=== PATIENT | female | born 1980 | race Two or more races ===

== ENCOUNTER 2017-05-20 12:10 | Inpatient (IN) | payer MEDICAID ==
[~2017-05-20] VITALS: Ht 149.9 cm; Wt 93.4 kg
[~2017-05-20 12:10] MED LIST: BUPR1TAB11; DIVA500T7; QUET400T3
[2017-05-20] MEDS ORDERED: SODIUM CHLORIDE 0.9% 500 ML IV ONE (12:26)
[2017-05-20] MEDS ORDERED: ONDANSETRON HCL 4 MG/2 ML VIAL IV ONE (12:30)
[2017-05-20 13:00] LABS: Basophils # (auto) 0 uL; Basophils % (auto) 0.4 % (0.0-2.0); CONDITION Y; Eosinophils # (auto) 0.1 uL; Eosinophils % (auto) 0.8 % (0.0-7.0); Hematocrit 38.1 % (36.0-46.0); Hemoglobin 12.8 g/dL (12.2-16.2); Lymphocytes # (auto) 1.7 uL; Mean Corpuscular Hgb Conc. 33.6 g/dL (32.0-36.0); Mean Corpuscular Volume 83.3 fL (80.0-100.0); Mean Platelet Volume 8.6 fL (7.4-10.4); Monocytes # (auto) 0.4 uL; Monocytes % (auto) 4.5 % (0.0-12.0); Neutrophils # (auto) 5.7 uL; Neutrophils % (auto) 72.3 % (37.0-80.0); Platelet Count (auto) 348 10^3/uL (140-450); Red Cell Distribution Width 14.6 % (11.6-16.0); White Blood Cell 7.8 10^3/uL (4.4-10.8)
[2017-05-20 13:15] LABS: INR 1.02 (0.9-1.15); Partial Thromboplastin Time 25.1 sec (22.64-33.71); Prothrombin Time 11.1 sec (9.37-12.3)
[2017-05-20 13:29] LABS: Albumin 3.6 g/dL (3.4-5.0); BUN/Creatinine Ratio 17.6; Bilirubin, Total 0.6 mg/dL (0.2-1.0); Calcium 8.4 mg/dL (8.5-10.1); Potassium 3.6 mmol/L (3.5-5.1); Total Protein 7.7 g/dL (6.4-8.2)
[2017-05-20] MEDS ORDERED: LORazepam 2MG/ML-1ML VIAL IV ONE (14:00)
[2017-05-20 15:10] LABS: Urine Bilirubin Negative (Negative); Urine Blood Negative /uL (Negative); Urine Color Yellow (Yellow); Urine Glucose Normal (Normal); Urine Ketone Negative (Negative); Urine Mucus FEW (None Seen); Urine Nitrite Negative (Negative); Urine RBC 1 /hpf (0 - 4); Urine Squamous Epithelial Cell FEW /hpf (<5); Urine Urobilinogen Normal (Negative); Urine pH 6.5 (5.0-8.0)
[2017-05-20] MEDS ORDERED: DIVA500T53 PO (16:20)
[2017-05-20] MEDS ORDERED: BUPR1TAB78 PO (16:21)
[2017-05-20] MEDS ORDERED: CLON05T PO (16:21)
[2017-05-20] MEDS ORDERED: QUET400T PO (16:21)
[2017-05-20] MEDS ORDERED: NITROGLYCERIN 0.4 MG SL TAB SL PRN (16:30)
[2017-05-20] MEDS ORDERED: MORPHINE SULF INJ 2 MG/ML SYRINGE 1ML IV PRN (16:30)
[2017-05-20] MEDS ORDERED: clonazePAM 0.5 MG TAB PO PRN (16:30)
[2017-05-20] MEDS ORDERED: HYDROcodone-ACET 5/325MG TAB PO PRN (16:30)
[2017-05-20] MEDS ORDERED: PANTOPRAZOLE SODIUM 40 MG/10 ML VIAL IV ONE (16:30)
[2017-05-20] MEDS: SODIUM CHLORIDE 0.9% 1,000 ML IV SCH (17:11)
[2017-05-20] MEDS: ONDANSETRON HCL 4 MG/2 ML VIAL IV PRN ×2 (17:25→23:40)
[2017-05-20] MEDS: buPROPion HCL 75 MG TAB PO SCH (19:30)
[2017-05-20] MEDS: metroNIDAZOLE 500MG/100ML 100 ML IV SCH (22:01)
[2017-05-20] MEDS: QUEtiapine FUMARATE 100 MG TAB PO SCH (22:36)
[2017-05-20 22:45] VITALS: BP 110/74
[2017-05-20 22:50] VITALS: BP 110/74
[2017-05-20] MEDS: MORPHINE SULF INJ 2 MG/ML SYRINGE 1ML IV PRN (23:40)
[2017-05-21] VITALS (7 sets, daily range): BP systolic 90–105; BP diastolic 59–67
[2017-05-21] MEDS: SODIUM CHLORIDE 0.9% 1,000 ML IV SCH ×2 (02:00→03:17)
[2017-05-21] MEDS: buPROPion HCL 75 MG TAB PO SCH ×2 (06:03→18:26)
[2017-05-21] MEDS: metroNIDAZOLE 500MG/100ML 100 ML IV SCH (06:05)
[2017-05-21 07:45] LABS: Basophils # (auto) 0 uL; Basophils % (auto) 0.3 % (0.0-2.0); CONDITION Y; Eosinophils # (auto) 0.1 uL; Eosinophils % (auto) 1.1 % (0.0-7.0); Hematocrit 35.8 % (36.0-46.0); Hemoglobin 12.1 g/dL (12.2-16.2); Lymphocytes # (auto) 2.9 uL; Lymphocytes % (auto) 35.2 % (10.0-50.0); Mean Corpuscular Hemoglobin 28.3 pg (28.0-32.0); Mean Corpuscular Hgb Conc. 33.7 g/dL (32.0-36.0); Mean Corpuscular Volume 84.2 fL (80.0-100.0); Mean Platelet Volume 8.3 fL (7.4-10.4); Monocytes # (auto) 0.5 uL; Monocytes % (auto) 5.9 % (0.0-12.0); Neutrophils # (auto) 4.7 uL; Neutrophils % (auto) 57.5 % (37.0-80.0); Platelet Count (auto) 294 10^3/uL (140-450); Red Cell Distribution Width 14.5 % (11.6-16.0); White Blood Cell 8.2 10^3/uL (4.4-10.8)
[2017-05-21 07:58] LABS: BUN/Creatinine Ratio 7.6; Calcium 7.9 mg/dL (8.5-10.1); Potassium 3.6 mmol/L (3.5-5.1)
[2017-05-21] MEDS ORDERED: cefTRIAXone 1GM/50ML D5W 50 ML IV SCH (09:00)
[2017-05-21] MEDS: PANTOPRAZOLE SODIUM 40 MG/10 ML VIAL IV SCH (09:45)
[2017-05-21] MEDS ORDERED: GOLYTELY 4L KIT PO ONE (12:15)
[2017-05-21] MEDS: ONDANSETRON HCL 4 MG/2 ML VIAL IV PRN (19:18)
[2017-05-21] MEDS: QUEtiapine FUMARATE 100 MG TAB PO SCH (22:25)
[2017-05-22 04:48] VITALS: BP 98/61
[2017-05-22] MEDS: SODIUM CHLORIDE 0.9% 1,000 ML IV SCH ×2 (05:31→11:22)
[2017-05-22 06:23] LABS: Hematocrit 35.4 % (36.0-46.0); Hemoglobin 11.9 g/dL (12.2-16.2)
[2017-05-22] MEDS: buPROPion HCL 75 MG TAB PO SCH (06:24)
[2017-05-22 08:00] VITALS: BP 105/67
[2017-05-22] MEDS ORDERED: diphenhdrAMINE HCL 50 MG/1 ML VL ONE (08:11)
[2017-05-22] MEDS ORDERED: SODIUM CHLORIDE LOCK 10 ML ONE (08:11)
[2017-05-22 09:00] VITALS: BP 100/35
[2017-05-22] MEDS: MIDAZOLAM HCL 5 MG/ML-1ML VIAL ONE ×2 (09:50→10:01)
[2017-05-22] MEDS: fentaNYL CITRATE 100 MCG/2 ML VL ONE ×2 (09:50→10:01)
[2017-05-22] MEDS ORDERED: HYDROCORTISONE ACET 25 MG RECTAL SUPP PR PRN (10:15)
[2017-05-22] MEDS: PANTOPRAZOLE SODIUM 40 MG/10 ML VIAL IV SCH (11:23)
[2017-05-22] MEDS: ONDANSETRON HCL 4 MG/2 ML VIAL IV PRN (11:23)
[2017-05-22] MEDS: MORPHINE SULF INJ 2 MG/ML SYRINGE 1ML IV PRN (11:24)
[2017-05-22] MEDS ORDERED: HYDR25SU21 PR (11:33)
[2017-05-22] MEDS ORDERED: PANT40TA2 PO (11:33)
[2017-05-22 12:45] VITALS: BP 95/72
[2017-05-22 13:00] VITALS: BP 95/72
[2017-05-22] MEDS ORDERED: MORPHINE SULFATE 4 MG/ML SYRG IV PRN (14:25)
[2017-05-22 22:00] VITALS: BP 115/72
== END 2017-05-22 14:15 | disposition home or self-care (01) | DRG 254 ==
LOC: EDBD 12:10 → ER 12:14 → TELE 12:15 → TELE-CENTR 22:10
PROVIDERS: ADMIT Internal Medicine; ATTEND Internal Medicine
PROC: 0DJD8ZZ Inspection of Lower Intestinal Tract, Via Natural or Artificial Opening Endoscopic (ICD-10-PCS; principal; 2017-05-20)
PROC: 0DJD8ZZ Inspection of Lower Intestinal Tract, Via Natural or Artificial Opening Endoscopic (ICD-10-PCS; 2017-05-20)
DX: K64.8 Other hemorrhoids (principal); K92.2 Gastrointestinal hemorrhage, unspecified; E86.0 Dehydration; F31.9 Bipolar disorder, unspecified; Z83.3 Family history of diabetes mellitus; F41.9 Anxiety disorder, unspecified; Z71.89 Other specified counseling
CPT/HCPCS: 36415; 45378; 71250; 74176; 80048; 80053; 81001; 81025; 83690; 85014; 85018; 85025; 85610; 85730; 93005; 94761; 96361; 96374; 96375; C9113; J0696; J2250; J2405; J3490

== ENCOUNTER 2017-05-24 23:26 | Emergency (ER) | payer MEDICAID ==
[~2017-05-24] VITALS: Ht 162.6 cm; Wt 72.6 kg
[~2017-05-24 23:26] MED LIST changes: +BUPR1TAB78 PO; +CLON05T PO; +DIVA500T53 PO; +HYDR25SU21 PR; +PANT40TA2 PO; +QUET400T PO
[2017-05-25] MEDS ORDERED: SODIUM CHLORIDE 0.9% 1,000 ML IVB ONE (00:32)
[2017-05-25] MEDS ORDERED: QUEtiapine FUMARATE 100 MG TAB PO ONE (00:45)
[2017-05-25] MEDS ORDERED: LORazepam 2MG/ML-1ML VIAL IV ONE (00:45)
[2017-05-25] MEDS ORDERED: ONDANSETRON HCL 4 MG/2 ML VIAL IV ONE (00:45)
[2017-05-25 01:17] LABS: Basophils # (auto) 0.3 uL; Basophils % (auto) 3.1 % (0.0-2.0); DEFINITIVE SEE PRINTOUT; Eosinophils # (auto) 0 uL; Eosinophils % (auto) 0.2 % (0.0-7.0); Hematocrit 38.3 % (36.0-46.0); Lymphocytes # (auto) 1.7 uL; Mean Corpuscular Hemoglobin 28.2 pg (28.0-32.0); Mean Corpuscular Hgb Conc. 33.8 g/dL (32.0-36.0); Mean Corpuscular Volume 83.3 fL (80.0-100.0); Mean Platelet Volume 8.3 fL (7.4-10.4); Monocytes # (auto) 0.3 uL; Monocytes % (auto) 3.4 % (0.0-12.0); Neutrophils # (auto) 7.4 uL; Neutrophils % (auto) 75.3 % (37.0-80.0); Platelet Count (auto) 267 10^3/uL (140-450); Red Cell Distribution Width 13.6 % (11.6-16.0); SUSPECT SEE PRINTOUT; White Blood Cell 9.7 10^3/uL (4.4-10.8)
[2017-05-25 01:29] LABS: INR 1.09 (0.9-1.15); Partial Thromboplastin Time 24.3 sec (22.64-33.71); Prothrombin Time 11.9 sec (9.37-12.3)
[2017-05-25 01:32] LABS: Urine Bilirubin Negative (Negative); Urine Blood Negative /uL (Negative); Urine Color Yellow (Yellow); Urine Glucose Normal (Normal); Urine Ketone TRACE (Negative); Urine Mucus FEW (None Seen); Urine Nitrite Negative (Negative); Urine RBC 2 /hpf (0 - 4); Urine Squamous Epithelial Cell FEW /hpf (<5); Urine Urobilinogen Normal (Negative); Urine pH 7.5 (5.0-8.0)
[2017-05-25 02:03] LABS: Albumin 3.4 g/dL (3.4-5.0); BUN/Creatinine Ratio 8.7; Calcium 8.1 mg/dL (8.5-10.1); Magnesium 2.1 mg/dL (1.6-2.6); Potassium 3.8 mmol/L (3.5-5.1)
[2017-05-25 02:06] LABS: Bilirubin, Total 0.4 mg/dL (0.2-1.0); Total Protein 7.5 g/dL (6.4-8.2)
[2017-05-25 03:40] VITALS: BP 93/57
[2017-05-25] MEDS ORDERED: cefTRIAXone 1GM/50ML D5W 50 ML IV ONE (04:45)
== END 2017-05-25 05:20 | disposition home or self-care (01) ==
LOC: ER 23:42
DX: K29.70 Gastritis, unspecified, without bleeding (principal); F41.9 Anxiety disorder, unspecified
CPT/HCPCS: 36415; 80053; 81001; 81025; 82150; 83690; 83735; 85025; 85610; 85730; 93005; 96361; 96365; 96375; 99285; J0696; J2060; J2405; J7030

== ENCOUNTER 2017-10-15 18:14 | Emergency (ER) | payer MEDICAID ==
[~2017-10-15] VITALS: Ht 167.6 cm; Wt 59.0 kg
[2017-10-15 19:12] LABS: Basophils # (auto) 0 uL; Basophils % (auto) 0.5 % (0.0-2.0); Eosinophils # (auto) 0.1 uL; Eosinophils % (auto) 1.3 % (0.0-7.0); Hematocrit 40.4 % (36.0-46.0); Hemoglobin 13.3 g/dL (12.2-16.2); Lymphocytes # (auto) 1.4 uL; Lymphocytes % (auto) 26.8 % (10.0-50.0); Mean Corpuscular Hemoglobin 27.5 pg (28.0-32.0); Mean Corpuscular Volume 83.3 fL (80.0-100.0); Mean Platelet Volume 8.4 fL (6.9-10.8); Monocytes # (auto) 0.3 uL; Monocytes % (auto) 5.4 % (0.0-12.0); Neutrophils # (auto) 3.4 uL; Platelet Count (auto) 251 10^3/uL (140-450); Red Cell Distribution Width 15.2 % (11.8-14.3); White Blood Cell 5.2 10^3/uL (4.4-10.8)
[2017-10-15 19:30] LABS: Albumin 3.7 g/dL (3.4-5.0); BUN/Creatinine Ratio 14.8; Bilirubin, Total 0.5 mg/dL (0.2-1.0); Total Protein 7.8 g/dL (6.4-8.2)
[2017-10-15] MEDS ORDERED: SODIUM CHLORIDE 0.9% 1,000 ML IV ONE ×2 (20:00→22:15)
[2017-10-15] MEDS ORDERED: ONDANSETRON HCL 4 MG/2 ML VIAL IV ONE ×2 (20:00→22:15)
[2017-10-15 20:10] LABS: Urine RBC None Seen /hpf (0 - 4)
[2017-10-15 20:21] LABS: Urine Bilirubin Negative (Negative); Urine Blood Negative /uL (Negative); Urine Color Colorless (Yellow); Urine Glucose Normal (Normal); Urine Ketone Negative (Negative); Urine Nitrite Negative (Negative); Urine Squamous Epithelial Cell FEW /hpf (<5); Urine Urobilinogen Normal (Negative); Urine pH 6.5 (5.0-8.0)
[2017-10-15] MEDS ORDERED: metroNIDAZOLE 500MG/100ML 100 ML IV ONE (21:45)
[2017-10-15] MEDS ORDERED: cefTRIAXone 1GM/50ML D5W 50 ML IV ONE ×2 (21:45→21:57)
[2017-10-15] MEDS ORDERED: ONDANSETRON HCL 4 MG/2 ML VIAL ONE (22:03)
[2017-10-15 23:10] VITALS: BP 113/80
== END 2017-10-15 23:16 | disposition home or self-care (01) ==
LOC: EDBD 18:14 → ER 18:17
DX: K52.9 Noninfective gastroenteritis and colitis, unspecified (principal); E86.0 Dehydration; R53.1 Weakness; Z79.899 Other long term (current) drug therapy; Z87.440 Personal history of urinary (tract) infections
CPT/HCPCS: 36415; 74176; 80053; 81001; 81025; 83690; 85025; 96361; 96365; 96366; 96368; 96375; 96376; 99285; J0696; J2405; J3490; J7030

== ENCOUNTER 2019-02-08 21:35 | Emergency (ER) | payer MEDICAID ==
[~2019-02-08] VITALS: Ht 147.3 cm; Wt 54.4 kg
[~2019-02-08 21:35] MED LIST changes: +DIVA1TAB59; -DIVA500T7
[2019-02-08] MEDS ORDERED: SODIUM CHLORIDE 0.9% 1,000 ML IVB ONE (23:06)
[2019-02-08] MEDS ORDERED: PANTOPRAZOLE 40 MG/10 ML VIAL IV STA (23:06)
[2019-02-08] MEDS ORDERED: HYDROmorphone HCL 2 MG/ML VL IV ONE (23:15)
[2019-02-08] MEDS ORDERED: ONDANSETRON HCL 4 MG/2 ML VIAL IV ONE (23:15)
[2019-02-08 23:35] LABS: Basophils # (auto) 0 uL; Eosinophils # (auto) 0.2 uL; Hemoglobin 12.7 g/dL (12.2-16.2); Lymphocytes # (auto) 2.4 uL; Monocytes # (auto) 0.4 uL
[2019-02-08 23:39] LABS: Basophils % (auto) 0.5 % (0.0-2.0); Eosinophils % (auto) 2.4 % (0.0-7.0); Hematocrit 38.3 % (36.0-46.0); Lymphocytes % (auto) 28.9 % (10.0-50.0); Mean Corpuscular Hemoglobin 26.9 pg (28.0-32.0); Mean Corpuscular Volume 81.6 fL (80.0-100.0); Monocytes % (auto) 5.2 % (0.0-12.0); Neutrophils # (auto) 5.3 uL; Nucleated Red Blood Cells % 0.2 %; Platelet Count (auto) 246 10^3/uL (140-450); Red Cell Distribution Width 14.5 % (11.8-14.3); White Blood Cell 8.3 10^3/uL (4.4-10.8)
[2019-02-08 23:52] LABS: INR 0.99 (0.9-1.15); Partial Thromboplastin Time 26.7 sec (23.78-33.04); Prothrombin Time 10.6 sec (9.27-12.13)
[2019-02-08 23:55] LABS: Albumin 3.7 g/dL (3.4-5.0); Calcium 8.5 mg/dL (8.5-10.1); Potassium 3.4 mmol/L (3.5-5.1)
[2019-02-08 23:57] LABS: BUN/Creatinine Ratio 18.1
[2019-02-09 00:03] LABS: Bilirubin, Total 0.4 mg/dL (0.2-1.0); Magnesium 2.1 mg/dL (1.6-2.6)
[2019-02-09 02:40] LABS: Urine Bacteria FEW /hpf (None Seen); Urine Blood Negative /uL (Negative); Urine WBC 7 /hpf (0 - 5)
[2019-02-09 03:30] VITALS: BP 120/79
[2019-02-09] MEDS ORDERED: cefTRIAXone 1GM/50ML D5W 50 ML IV ONE (03:45)
[2019-02-09] MEDS ORDERED: ALUM & MAG HYDROX-SIMETH LIQ(MAALOX) 30 ML PO ONE (04:15)
== END 2019-02-09 04:31 | disposition home or self-care (01) ==
LOC: ER 21:35 → EDBD 21:35 → ER 02-09 04:31
DX: N39.0 Urinary tract infection, site not specified (principal); Z79.899 Other long term (current) drug therapy
CPT/HCPCS: 36415; 74176; 76705; 80053; 81001; 81025; 82150; 83690; 83735; 85025; 85610; 85730; 94761; 96365; 96375; 99284; C9113; J0696; J1170; J2405

== ENCOUNTER 2019-12-30 10:31 | Emergency (ER) | payer MEDICAID ==
[~2019-12-30] VITALS: Ht 149.9 cm; Wt 59.0 kg
[~2019-12-30 10:31] MED LIST changes: -BUPR1TAB78 PO; +BUPR200T7 PO; +CLON0.5T3 PO; -CLON05T PO
[2019-12-30 11:04] LABS: Basophils # (auto) 0 uL; Basophils % (auto) 0.5 % (0.0-2.0); Eosinophils # (auto) 0.1 uL; Eosinophils % (auto) 1.5 % (0.0-7.0); Hematocrit 40.4 % (36.0-46.0); Hemoglobin 13.7 g/dL (12.2-16.2); Lymphocytes # (auto) 1.6 uL; Lymphocytes % (auto) 27.4 % (10.0-50.0); Mean Corpuscular Hemoglobin 28.3 pg (28.0-32.0); Mean Corpuscular Volume 83.3 fL (80.0-100.0); Monocytes # (auto) 0.3 uL; Monocytes % (auto) 5.4 % (0.0-12.0); Neutrophils # (auto) 3.8 uL; Neutrophils % (auto) 65.2 % (37.0-80.0); Nucleated Red Blood Cells % 0.1 %; Platelet Count (auto) 231 10^3/uL (140-450); Red Blood Cells 4.84 10^6/uL (4.0-5.20); Red Cell Distribution Width 15.5 % (11.8-14.3); White Blood Cell 5.8 10^3/uL (4.4-10.8)
[2019-12-30 11:24] LABS: Alanine Aminotransferase 18 U/L (13-56); Albumin 4.1 g/dL (3.4-5.0); Anion Gap 6 (5-15); Blood Alcohol < 3.0 mg/dL (0-5); Blood Urea Nitrogen 19 mg/dL (7-18); Calcium 8.9 mg/dL (8.5-10.1); Carbon Dioxide 24 mmol/L (21-32); Chloride 108 mmol/L (98-107); Glucose 95 mg/dL (74-106); Potassium 3.4 mmol/L (3.5-5.1); Sodium 138 mmol/L (136-145)
[2019-12-30 11:27] LABS: Alkaline Phosphatase 82 U/L (45-117); Aspartate Aminotransferase 14 U/L (15-37); BUN/Creatinine Ratio 23.2; Bilirubin, Total 0.8 mg/dL (0.2-1.0); GFR African American 101 mL/min; GFR Non-African American 83 mL/min; Total Protein 8.1 g/dL (6.4-8.2)
[2019-12-30] MEDS ORDERED: ACETAMINOPHEN 325 MG TAB PO ONE ×2 (14:30)
[2019-12-30 15:45] LABS: Amphetamine Screen, Urine NEGATIVE (NEGATIVE); Barbiturate Scree,Urine NEGATIVE (NEGATIVE); Benzodiazephine Screen, Urine NEGATIVE (NEGATIVE); Cannabinoid Screen, Urine NEGATIVE (NEGATIVE); Cocaine Screen, Urine NEGATIVE (NEGATIVE); Opiate Scree,Urine NEGATIVE (NEGATIVE); Phencyclidine Screen, Urine NEGATIVE (NEGATIVE)
[2019-12-30] MEDS ORDERED: QUEtiapine FUMARATE 100 MG TAB PO SCH (22:00)
[2019-12-30] MEDS: LORazepam 0.5 MG TAB PO SCH (22:28)
[2019-12-31] MEDS: LORazepam 0.5 MG TAB PO SCH (10:00)
[2019-12-31 10:27] VITALS: BP 101/63
== END 2019-12-31 10:43 | disposition psychiatric hospital, planned readmission (93) ==
LOC: EDBD 10:31 → ER 10:31
DX: F31.9 Bipolar disorder, unspecified (principal); F41.9 Anxiety disorder, unspecified; R45.851 Suicidal ideations
CPT/HCPCS: 36415; 80053; 80307; 80320; 81025; 85025

== ENCOUNTER 2020-03-12 18:33 | Emergency (ER) | payer MEDICAID ==
[~2020-03-12] VITALS: Ht 149.9 cm; Wt 59.0 kg
[2020-03-12 21:00] VITALS: BP 108/63
== END 2020-03-12 21:09 | disposition home or self-care (01) ==
LOC: ER 18:33
DX: B00.1 Herpesviral vesicular dermatitis (principal); Z98.51 Tubal ligation status

== ENCOUNTER 2020-10-06 21:51 | Emergency (ER) | payer MEDICAID ==
[~2020-10-06] VITALS: Ht 160 cm; Wt 55.8 kg
[2020-10-06 23:13] LABS: Basophils # (auto) 0.1 10 ^3/uL (0-0.2); Eosinophils # (auto) 0.2 10 ^3/uL (0-0.8); Eosinophils % (auto) 1.9 % (0.0-7.0); Hematocrit 42.6 % (36.0-46.0); Hemoglobin 13.9 g/dL (12.2-16.2); Lymphocytes # (auto) 2.2 10 ^3/uL (0.4-5.4); Lymphocytes % (auto) 19.9 % (10.0-50.0); Mean Corpuscular Hemoglobin 27.4 pg (28.0-32.0); Mean Corpuscular Hgb Conc. 32.7 g/dL (32.0-36.0); Monocytes # (auto) 0.4 10 ^3/uL (0-1.3); Monocytes % (auto) 3.6 % (0.0-12.0); Neutrophils % (auto) 73.6 % (37.0-80.0); Nucleated Red Blood Cells % 0.1 %; Platelet Count (auto) 281 10^3/uL (140-450); Red Blood Cells 5.07 10^6/uL (4.0-5.20); Red Cell Distribution Width 14.4 % (11.8-14.3); White Blood Cell 10.9 10^3/uL (4.4-10.8)
[2020-10-06 23:31] LABS: Urine Bacteria FEW /hpf (None Seen); Urine Blood Negative /uL (Negative); Urine Mucus FEW (None Seen); Urine Specific Gravity 1.015 (1.001-1.035); Urine WBC 1 /hpf (0 - 5)
[2020-10-06 23:35] LABS: Potassium 3.6 mmol/L (3.5-5.1)
[2020-10-06 23:39] LABS: BUN/Creatinine Ratio 20.8; Calcium 9.2 mg/dL (8.5-10.1)
[2020-10-06 23:42] LABS: Bilirubin, Total 0.5 mg/dL (0.2-1.0); Total Protein 8.5 g/dL (6.4-8.2)
[2020-10-06 23:46] LABS: Alcohol, Urine < 3.0 mg/dL (0-10); Amphetamine Screen, Urine NEGATIVE (NEGATIVE); Barbiturate Scree,Urine NEGATIVE (NEGATIVE); Benzodiazephine Screen, Urine NEGATIVE (NEGATIVE); Cannabinoid Screen, Urine NEGATIVE (NEGATIVE); Cocaine Screen, Urine NEGATIVE (NEGATIVE); Opiate Scree,Urine NEGATIVE (NEGATIVE); Phencyclidine Screen, Urine NEGATIVE (NEGATIVE)
[2020-10-07] MEDS ORDERED: ONDANSETRON HCL 4 MG/2 ML VIAL IV ONE (02:45)
[2020-10-07] MEDS ORDERED: MORPHINE SULFATE 4 MG/ML SYR/VIAL IV ONE (02:45)
[2020-10-07 04:32] VITALS: BP 116/79
== END 2020-10-07 03:35 | disposition home or self-care (01) ==
LOC: EDBD 21:51 → ER 21:58
DX: R10.84 Generalized abdominal pain (principal); R11.2 Nausea with vomiting, unspecified; R59.1 Generalized enlarged lymph nodes; Z87.440 Personal history of urinary (tract) infections; Z98.51 Tubal ligation status
CPT/HCPCS: 36415; 74176; 80053; 80307; 81001; 82150; 83690; 84702; 85025; 96374; 96375; 99284; J2270; J2405

== ENCOUNTER 2020-11-15 21:56 | Emergency (ER) | payer MEDICAID ==
[~2020-11-15] VITALS: Ht 149.9 cm; Wt 63.5 kg
[2020-11-15 22:46] LABS: Urine Bacteria NONE SEEN /hpf (None Seen); Urine Blood Negative /uL (Negative); Urine Specific Gravity 1.022 (1.001-1.035); Urine WBC 1 /hpf (0 - 5)
[2020-11-15 23:43] LABS: Basophils # (auto) 0 10 ^3/uL (0-0.2); Basophils % (auto) 0.4 % (0.0-2.0); Eosinophils # (auto) 0.1 10 ^3/uL (0-0.8); Eosinophils % (auto) 0.5 % (0.0-7.0); Hematocrit 41.4 % (36.0-46.0); Hemoglobin 13.8 g/dL (12.2-16.2); Lymphocytes # (auto) 1.7 10 ^3/uL (0.4-5.4); Lymphocytes % (auto) 14.6 % (10.0-50.0); Mean Corpuscular Hemoglobin 27.7 pg (28.0-32.0); Mean Corpuscular Hgb Conc. 33.4 g/dL (32.0-36.0); Monocytes # (auto) 0.4 10 ^3/uL (0-1.3); Monocytes % (auto) 3.3 % (0.0-12.0); Neutrophils # (auto) 9.4 10 ^3/uL (1.6-8.6); Neutrophils % (auto) 81.2 % (37.0-80.0); Nucleated Red Blood Cells % 0.1 %; Platelet Count (auto) 337 10^3/uL (140-450); Red Blood Cells 4.99 10^6/uL (4.0-5.20); Red Cell Distribution Width 14.4 % (11.8-14.3); White Blood Cell 11.6 10^3/uL (4.4-10.8)
[2020-11-16 00:06] LABS: Albumin 4.2 g/dL (3.4-5.0); BUN/Creatinine Ratio 18.3; Potassium 3.9 mmol/L (3.5-5.1)
[2020-11-16 00:15] LABS: Bilirubin, Total 0.3 mg/dL (0.2-1.0); Total Protein 8.5 g/dL (6.4-8.2)
[2020-11-16] MEDS ORDERED: PANTOPRAZOLE 40 MG TAB PO ONE (03:00)
[2020-11-16] MEDS ORDERED: DICYCLOMINE HCL 10 MG CAP PO ONE (03:00)
[2020-11-16] MEDS ORDERED: HYDROcodone-ACET 5/325MG TAB PO ONE (03:00)
[2020-11-16 03:23] LABS: INR 1.02 (0.9-1.15); Partial Thromboplastin Time 25.2 sec (23.0-31.2)
[2020-11-16 03:33] LABS: Amylase 87 U/L (25-115); Lipase 235 U/L (73-393)
[2020-11-16 03:35] VITALS: BP 122/93
== END 2020-11-16 03:39 | disposition home or self-care (01) ==
LOC: ER 21:59
DX: K25.4 Chronic or unspecified gastric ulcer with hemorrhage (principal); K58.9 Irritable bowel syndrome, unspecified; Z79.899 Other long term (current) drug therapy
CPT/HCPCS: 36415; 80053; 80320; 81001; 82150; 83605; 83690; 84484; 85025; 85610; 85730; 87040; 99284; J0500

== ENCOUNTER → 2020-11-28 | Outpatient (CLI) | payer MEDICAID | END | disposition home or self-care (01) | LOC: LAB 08:21 | PROVIDERS: ATTEND Nurse Practitioner Family | DX: U07.1 COVID-19 (principal) ==

== ENCOUNTER 2021-08-06 11:21 | Emergency (ER) | payer MEDICAID ==
[~2021-08-06] VITALS: Ht 147.3 cm; Wt 60.8 kg
[~2021-08-06 11:21] MED LIST changes: +DIVA500T2 PO; -DIVA500T53 PO; -QUET400T3; +QUET400T4
[2021-08-06 12:35] LABS: Basophils # (auto) 0 10 ^3/uL (0-0.2); Basophils % (auto) 0.2 % (0.0-2.0); Eosinophils # (auto) 0.1 10 ^3/uL (0-0.8); Eosinophils % (auto) 0.5 % (0.0-7.0); Hematocrit 39.7 % (36.0-46.0); Hemoglobin 13.4 g/dL (12.2-16.2); Lymphocytes # (auto) 0.6 10 ^3/uL (0.4-5.4); Lymphocytes % (auto) 5.9 % (10.0-50.0); Mean Corpuscular Hemoglobin 28.1 pg (28.0-32.0); Mean Corpuscular Hgb Conc. 33.7 g/dL (32.0-36.0); Mean Corpuscular Volume 83.3 fL (80.0-100.0); Monocytes # (auto) 0.4 10 ^3/uL (0-1.3); Monocytes % (auto) 3.5 % (0.0-12.0); Neutrophils # (auto) 9.5 10 ^3/uL (1.6-8.6); Neutrophils % (auto) 89.9 % (37.0-80.0); Red Blood Cells 4.77 10^6/uL (4.0-5.20); Red Cell Distribution Width 14.3 % (11.8-14.3); White Blood Cell 10.6 10^3/uL (4.4-10.8)
[2021-08-06 12:44] LABS: Albumin 3.8 g/dL (3.4-5.0); Calcium 8.8 mg/dL (8.5-10.1); Potassium 3.9 mmol/L (3.5-5.1)
[2021-08-06 12:54] LABS: BUN/Creatinine Ratio 11.1; Bilirubin, Total 0.7 mg/dL (0.2-1.0)
[2021-08-06] MEDS ORDERED: SODIUM CHLORIDE 0.9% 1,000 ML IVB ONE (13:15)
[2021-08-06] MEDS ORDERED: SODIUM CHLORIDE 0.9% 1,000 ML IV ONE (13:30)
[2021-08-06 13:31] LABS: Urine Bacteria NONE SEEN /hpf (None Seen); Urine Blood Negative /uL (Negative); Urine Mucus FEW (None Seen); Urine Specific Gravity 1.037 (1.001-1.035); Urine WBC 6 /hpf (0 - 5)
[2021-08-06 13:47] LABS: Magnesium 2.1 mg/dL (1.6-2.6)
[2021-08-06] MEDS ORDERED: ACETAMINOPHEN 325 MG TAB PO ONE (17:30)
[2021-08-06 18:15] VITALS: BP 100/64
== END 2021-08-06 18:37 | disposition home or self-care (01) ==
LOC: ER 11:21
DX: R53.1 Weakness (principal); N39.0 Urinary tract infection, site not specified; K59.00 Constipation, unspecified; F32.9 Major depressive disorder, single episode, unspecified; Z79.899 Other long term (current) drug therapy; Z20.822 Contact with and (suspected) exposure to COVID-19
CPT/HCPCS: 36415; 71045; 74176; 80053; 81001; 83690; 83735; 84443; 84702; 85025; 87426; 87804; 93005; 96360; 99285; C9803; J7030; U0003

== ENCOUNTER 2021-12-09 18:48 | Emergency (ER) | payer MEDICAID ==
[~2021-12-09] VITALS: Ht 165.1 cm; Wt 59.0 kg
[2021-12-09 19:00] VITALS: BP 132/86
[2021-12-09] MEDS ORDERED: ACETAMINOPHEN 325 MG TAB PO ONE (22:30)
== END 2021-12-09 22:37 | disposition home or self-care (01) ==
LOC: ER 18:48
DX: S13.4XXA Sprain of ligaments of cervical spine, initial encounter (principal); Z86.2 Personal history of diseases of the blood and blood-forming organs and certain disorders involving the immune mechanism; Z79.899 Other long term (current) drug therapy; V49.9XXA Car occupant (driver) (passenger) injured in unspecified traffic accident, initial encounter; Y93.89 Activity, other specified; Y92.89 Other specified places as the place of occurrence of the external cause; Y99.8 Other external cause status
CPT/HCPCS: 70450; 71250; 72125; 73030; 74176

== ENCOUNTER 2025-03-16 20:33 | Inpatient (IN) | payer MEDICAID ==
[~2025-03-16] VITALS: Ht 149.9 cm; Wt 57.2 kg
[~2025-03-16 20:33] MED LIST changes: +BUPR-133; +BUPR150T18 PO; -BUPR1TAB11; +DIVA-91 PO; +DIVA1TAB59 PO; -DIVA500T2 PO; +PANT-62 PO; +SEMA7TAB2 PO; +SUCR1TAB PO
[2025-03-16 21:30] LABS: Urine Bacteria None Seen /hpf (None Seen)
--- NOTE | 2025-03-16 21:34 | DVH ---
Exam: CT CT AB PEL WO CON-NO ORAL OR IV History: R sided abd pain, n/v/d s/p colonoscopy and EGD 03/08 Comparison Study: CT ABD PELVIS WO CONTRAST on DOS: 08/06/21 TECHNIQUE: Multidetector CT of the abdomen and pelvis was performed from lung bases to pubic symphysi s. Imaging was performed without IV contrast. Axial, coronal, and sagittal multiplanar reformats were obtained from the axial data set by the technologist. RADIATION DOSE: DLP 415.35 mGy.cm; CTDI vol 7.45 mGy. Findings: Limited evaluation given noncontrast technique. Lungs: The lung bases are clear. Heart: No cardiomegaly or pericardial effusion. Liver: Unremarkable. Small locule of air within the common bile duct. Gallbladder: Unremarkable. Spleen: Unremarkable Pancreas: Unremarkable Adrenals: Unremarkable Kidneys: Unremarkable GI tract: Unremarkable : Unremarkable. Vasculature: Unremarkable Lymphadenopathy: Absent Peritoneum: No ascites Musculoskeletal: Unremarkable Soft tissues: Unremarkable Impression: 1. Limited evaluation given noncontrast technique. 2. No definite acute abdominopelvic abnormalities. 3. Trace pneumobilia, favored iatrogenic.
[2025-03-16 21:41] LABS: Urine Amorphous Crystal FEW /hpf (None Seen); Urine Blood Negative /uL (Negative); Urine Clarity Clear (Clear); Urine Color Yellow (Yellow); Urine Protein, UAD Negative (Negative); Urine Specific Gravity 1.021 (1.001-1.035); Urine Squamous Epithelial Cell FEW /hpf (<5); Urine Urobilinogen Normal (Negative); Urine WBC 3 /HPF (0-5)
[2025-03-16 21:56] LABS: Basophils # (auto) 0 10 ^3/uL (0-0.2); Basophils % (auto) 0.4 % (0.0-2.0); Eosinophils # (auto) 0.1 10 ^3/uL (0-0.8); Eosinophils % (auto) 0.6 % (0.0-7.0); Hematocrit 41.1 % (36.0-46.0); Hemoglobin 13.5 g/dL (12.2-16.2); Lymphocytes % (auto) 17.8 % (10.0-50.0); Mean Corpuscular Hemoglobin 27.8 pg (28.0-32.0); Mean Corpuscular Volume 84.4 fL (80.0-100.0); Monocytes # (auto) 0.4 10 ^3/uL (0-1.3); Monocytes % (auto) 3.7 % (0.0-12.0); Neutrophils # (auto) 8.9 10 ^3/uL (1.6-8.6); Neutrophils % (auto) 77.5 % (37.0-80.0); Platelet Count (auto) 286 10^3/uL (140-450); Red Blood Cells 4.87 10^6/uL (4.0-5.20); Red Cell Distribution Width 14.6 % (11.8-14.3); White Blood Cell 11.5 10^3/uL (4.4-10.8)
[2025-03-16 22:04] LABS: Alkaline Phosphatase 83 U/L (46-116); Calcium 9.5 mg/dL (8.7-10.4); Carbon Dioxide 25 mmol/L (20-31); Chloride 105 mmol/L (98-107); Glucose 98 mg/dL (74-106); Potassium 4.1 mmol/L (3.5-5.1)
[2025-03-16 22:05] LABS: Albumin 4.5 g/dL (3.2-4.8); Anion Gap 8 (5-15); BUN/Creatinine Ratio 14.9 (10.0-20.0); Bilirubin, Total 0.3 mg/dL (0.2-1.0); Blood Urea Nitrogen 11 mg/dL (9-23); Sodium 138 mmol/L (136-145); Total Protein 7.4 g/dL (5.7-8.2)
[2025-03-16 22:06] LABS: Alanine Aminotransferase < 9 U/L (7-40); Aspartate Aminotransferase < 8 U/L (13-40); Lipase 58 U/L (12-53)
[2025-03-16] MEDS: SODIUM CHLORIDE 0.9% 2,000 ML IV ONE (23:47)
[2025-03-16] MEDS: MORPHINE SULFATE INJ 2 MG/ml SYRG IV ONE (23:57)
[2025-03-16] MEDS: PANTOPRAZOLE 40 MG/10 ML VIAL INJ IV ONE (23:58)
[2025-03-16] MEDS: ONDANSETRON HCL 4 MG/2 ML VIAL IV ONE (23:58)
--- NOTE | 2025-03-17 01:34 | ED.PDOC ---
GI ASSESSMENT HPI Comments 44-year-old female with a history of prediabetes, peptic ulcer disease, IBS and bipolar disorder brought in by family complaining of right-sided abdominal pain, nausea, vomiting and diarrhea since yesterday. Patient denies any blood in her stool or vomit, fever or urinary symptoms. Patient states she underwent EGD and colonoscopy with polypectomy on 03/08/[address] Chua. Chief Complaint: Abdominal Pain Time Seen by MD: 20:48 Primary Care Provider: Hollis Allergies: Coded Allergies: NO KNOWN ALLERGIES (Unverified , 12/14/11) Home Meds Active Scripts Pantoprazole Sodium Sesquihydr (Protonix) 40 Mg Tab, 40 MG PO DAILY, #30 TAB Prov:YNES WEBSTER MD 05/22/17 Hydrocortisone Acetate (Anusol-Hc) 25 Mg Sup, 1 SUPP UT BID PRN, #28 SUPP Prov:YNES WEBSTER MD 05/22/17 Reported Medications Clonazepam (KlonoPIN TABLET) 0.5 Mg Tb, 1 TAB PO DAILY, #30 TAB 05/20/17 Bupropion HCl (Bupropion HCl ER) 200 Mg Tab, 200 MG PO DAILY, TAB 05/20/17 Quetiapine Fumerate (Seroquel) 400 Mg Tab, 1 TAB PO QPM, #30 TAB 1 Refill 05/20/17 Divalproex Sodium (Depakote) 500 Mg Tab, 1 TAB PO DAILY, #60 TAB 1 Refill 05/20/17 [Divalproex Tue075 M2] (Divalproex Sodium Dr) 500 MG TAB No Conflict Check, MG 07/28/13 [Bupropion Nfx672 Mg] (Bupropion Hcl Er) 150 MG TAB No Conflict Check, MG 07/28/13 [Seroquel Xr400 Mg] (Seroquel Xr) 400 MG TAB No Conflict Check, MG 07/28/13 Mode of Arrival: Wheelchair Past Medical History PAST MEDICAL HISTORY: Anemia, Anxiety, Depression, PUD, UTI'S Past Medical History (Other): Bipolar disorder Surgical History: Tubal Ligation [employer] History: Ovarian Cysts Family History Family History: Family hx of DM Social History Smoker: Non-Smoker Alcohol: Denies ETOH Use Drugs: Denies Drug Use Lives In: Home All Other Systems: Reviewed and Negative (Comprehensive systems review obtained and negative except for what is stated in the HPI.) Physical Exam General Appearance: Mild Distress HEENT: Other (Pupils and face symmetric. Dry mucous membranes.) Neck: Full Range of Motion, Normal Inspection Respiratory: Lungs Clear, No Accessory Muscle Use, No Respiratory Distress, Normal Breath Sounds Cardiovascular: No Edema, No JVD, Regular Rate/Rhythm Breast Exam: Deferred Gastrointestinal: Epigastric, RLQ, RUQ, Soft, Tenderness Genitalia: Deferred Pelvic: Deferred Rectal: Deferred Extremities: Normal inspection, Normal range of motion, Non-tender, No pedal edema Neurologic: Alert (Oriented x4), Normal Affect, Normal Mood, Other (Moves all extremities. No gross focal deficit.) Cerebellar Function: NOT DONE Reflexes: NOT DONE Skin: Dry, Pallor, Warm Lymphatic: NOT DONE Was a procedure done? Was a procedure done?: No GI differential Dx Differential Diagnosis: Cholangitis, Cholecystitis, Diverticular disease, Gastroenteritis, GI hemorrhage, Hepatitis, Inflammatory BD, Ischemic Bowel, UTI, Dehydration, Diabetes/ DKA, Electrolyte Imbalance, Food Poisoning, Bacterial, Viral, Hypovolemia, Stress Ulcer X-Ray, Labs, Meds, VS Vital Signs Date Time Temp Pulse Resp B/P (MAP) Pulse Ox O2 Delivery O2 Flow Rate FiO2 03/16/25 23:57 89 19 107/79 03/16/25 23:48 98.7 89 19 106/73 (84) 98 98.7 03/16/25 20:40 97.5 114 18 104/67 (79) 96 97.5 Lab Test 03/16/25 22:22 03/16/25 21:30 03/16/25 20:49 03/16/25 20:40 Range/Units Troponin I High Sensitivity < 3 L < 3 L </=34 ng/L White Blood Count 11.5 H 4.4-10.8 10^3/uL Red Blood Count 4.87 4.0-5.20 10^6/uL Hemoglobin 13.5 12.2-16.2 g/dL Hematocrit 41.1 36.0-46.0 % Mean Corpuscular Volume 84.4 80.0-100.0 fL Mean Corpuscular Hemoglobin 27.8 L 28.0-32.0 pg Mean Corpuscular Hemoglobin Concent 33.0 32.0-36.0 g/dL Red Cell Distribution Width 14.6 H 11.8-14.3 % Platelet Count 286 140-450 10^3/uL Mean Platelet Volume 8.2 6.9-10.8 fL Neutrophils (%) (Auto) 77.5 37.0-80.0 % Lymphocytes (%) (Auto) 17.8 10.0-50.0 % Monocytes (%) (Auto) 3.7 0.0-12.0 % Eosinophils (%) (Auto) 0.6 0.0-7.0 % Basophils (%) (Auto) 0.4 0.0-2.0 % Neutrophils # (Auto) 8.9 H 1.6-8.6 10 ^3/uL Lymphocytes # (Auto) 2.0 0.4-5.4 10 ^3/uL Monocytes # (Auto) 0.4 0-1.3 10 ^3/uL Eosinophils # (Auto) 0.1 0-0.8 10 ^3/uL Basophils # (Auto) 0 0-0.2 10 ^3/uL Nucleated Red Blood Cells 0.0 % Sodium Level 138 136-145 mmol/L Potassium Level 4.1 3.5-5.1 mmol/L Chloride Level 105 98-107 mmol/L Carbon Dioxide Level 25 20-31 mmol/L Anion Gap 8 5-15 Blood Urea Nitrogen 11 9-23 mg/dL Creatinine 0.74 0.550-1.02 mg/dL Glomerular Filtration Rate Calc 104 >90 mL/min BUN/Creatinine Ratio 14.9 10.0-20.0 Serum Glucose 98 74-106 mg/dL Lactic Acid Level 1.8 0.4-2.0 mmol/L Calcium Level 9.5 8.7-10.4 mg/dL Total Bilirubin 0.3 0.2-1.0 mg/dL Aspartate Amino Transferase (AST) < 8 L 13-40 U/L Alanine Aminotransferase (ALT) < 9 7-40 U/L Alkaline Phosphatase 83 46-116 U/L B-Type Natriuretic Peptide 1.65 0-100 pg/mL Total Protein 7.4 5.7-8.2 g/dL Albumin 4.5 3.2-4.8 g/dL Lipase 58 H 12-53 U/L Beta HCG, Quantitative 0.9 L 1.5-4.2 mIU/mL POC Glucose 105 70-106 mg/dl Urine Color Yellow Yellow Urine Clarity Clear Clear Urine pH 6.0 5.0-9.0 Urine Specific [place] 1.021 1.001-1.035 Urine Protein Negative Negative Urine Ketones Trace Negative Urine Blood Negative Negative /uL Urine Nitrite Negative Negative Urine Bilirubin Negative Negative Urine Urobilinogen Normal Negative mg/dL Urine Leukocyte Esterase Negative Negative /uL Urine RBC <1 0 - 4 /hpf Urine Microscopic WBC 3 0-5 /HPF Urine Squamous Epithelial Cells Few <5 /hpf Urine Amorphous Crystals Few None Seen /hpf Urine Bacteria None seen None Seen /hpf Urine Glucose Normal Normal mg/dL Urine Opiates Screen Pending Urine Fentanyl Screen Pending Urine Barbiturates Screen Pending Urine Phencyclidine Screen Pending Urine Amphetamines Screen Pending Urine Benzodiazepines Screen Pending Urine Cocaine Screen Pending Urine Cannabinoids Screen Pending Current Medications Medications (Trade) Dose Ordered Sig/Mitali Route Start Time Stop Time Status Last Admin Morphine Sulfate 2 mg ONCE ONCE IV 03/16/25 21:00 03/16/25 21:01 DC 03/16/25 23:57 Ondansetron HCl (Zofran) 4 mg ONCE ONCE IV 03/16/25 21:00 03/16/25 21:01 DC 03/16/25 23:58 Pantoprazole Sodium (Protonix) 40 mg ONCE ONCE IV 03/16/25 21:00 03/16/25 21:01 DC 03/16/25 23:58 Sodium Chloride 2,000 ml @ 1,000 mls/hr Q2H ONCE IV 03/16/25 21:00 03/16/25 22:59 DC 03/16/25 23:47 PROCEDURE(s): ABPL - CT AB PEL WO CON-NO ORAL OR IV REASON: R sided abd pain, n/v/d s/p colonoscopy and EGD 03/08 ORDER NUMBER(s): [id number], ACCESSION NUMBER(s): [id number] Exam: CT CT AB PEL WO CON-NO ORAL OR IV History: R sided abd pain, n/v/d s/p colonoscopy and EGD 03/08 Comparison Study: CT ABD PELVIS WO CONTRAST on DOS: 08/06/21 TECHNIQUE: Multidetector CT of the abdomen and pelvis was performed from lung bases to pubic symphysis. Imaging was performed without IV contrast. Axial, coronal, and sagittal multiplanar reformats were obtained from the axial data set by the technologist. RADIATION DOSE: DLP 415.35 mGy.cm; CTDI vol 7.45 mGy. Findings: Limited evaluation given noncontrast technique. Lungs: The lung bases are clear. Heart: No cardiomegaly or pericardial effusion. Liver: Unremarkable. Small locule of air within the common bile duct. Gallbladder: Unremarkable. Spleen: Unremarkable Pancreas: Unremarkable Adrenals: Unremarkable Kidneys: Unremarkable GI tract: Unremarkable : Unremarkable. Vasculature: Unremarkable Lymphadenopathy: Absent Peritoneum: No ascites Musculoskeletal: Unremarkable Soft tissues: Unremarkable Impression: 1. Limited evaluation given noncontrast technique. 2. No definite acute abdominopelvic abnormalities. 3. Trace pneumobilia, favored iatrogenic. X-Ray, Labs, Meds, VS Comment 44-year-old female with a history of ulcer disease, bipolar disorder, prediabetes complaining of abdominal pain, nausea, vomiting and diarrhea. Patient states she underwent EGD and colonoscopy with polypectomy on 03/08/2025 Vitals remarkable for heart rate 114 Exam remarkable for dry mucous membranes, epigastric and right-sided abdominal pain Rhythm strip independently interpreted by me: Sinus tach, rate 114, no ectopy. CT abdomen and pelvis Impression: 1. Limited evaluation given noncontrast technique. 2. No definite acute abdominopelvic abnormalities. 3. Trace pneumobilia, favored iatrogenic. CBC remarkable for WBC 11.5, CMP unremarkable, lipase slightly elevated at 58, UA unremarkable, troponin negative Patient treated with the following in the ED: 2 L 0.9 normal saline IV bolus, morphine 2 mg IV, Zofran 4 mg IV, Protonix 40 mg IV On re-evaluation, patient stated pain had improved but not resolved. Vitals were stable. Plan is to admit the patient for lipase trend, GI re-evaluation, pain and emesis control. Time of 1ST Reevaluation: 02:09 Reevaluation 1ST: Improved Patient Education/Counseling: Diagnosis, Treatment Family Education/Counseling: No Family Present Departure 1 Departure Time of Disposition: 02:09 Impression: Primary Impression: Acute abdominal pain Additional Impressions: Elevated lipase Pneumobilia Disposition: ADMITTED INPATIENT Admit to: Med Surg Condition: Guarded Critical Care Note Critical Care Time?: No Stability Stability form required: No Heart Score Heart Score: Heart Score Response (Comments) Value History N/A 0 EKG N/A 0 Age N/A 0 Risk Factors N/A 0 Troponin N/A 0 Total 0 PILAR EATON MD Mar 17, 2025 01:34
--- NOTE | 2025-03-17 03:20 | DVHHPRES ---
History of Present Illness Resident Creating Document: ROSY MONTERROSO RESIDENT History of Present Illness Patient is a 44-year-old female with past medical history of prediabetes, irritable bowel syndrome, peptic ulcer disease, questionable bipolar disorder, depression, gallbladder sludge, who comes in due to abdominal pain. According to the patient, she started experiencing abdominal pain which started yesterday and progressively worsened overnight, associated with 2 episode of vomiting which she describes as coffee-ground dark in color and 2 episodes of watery bowel movement. Patient localizes the pain to the right upper quadrant with radiation to the right lower quadrant, describes it as sharp and burning in nature constant and 5/10 intensity right now. Patient notes she had a similar pain in August when she was diagnosed with peptic ulcer disease at [facility]. Of note, patient completed colonoscopy on 03/08/2025 and EGD in January 2024. Patient was noted to have a white cell count of 11.5, serum lipase 58 and tachycardic. On review of systems patient is complaining of fatigue, chills, nausea, vomiting, depression and anxiety. Last menstrual period was on 03/04/2025. CT abdomen pelvis showed trace pneumobilia otherwise unremarkable. Past Medical History prediabetes, irritable bowel syndrome, peptic ulcer disease, questionable bipolar disorder, depression Past Surgical History section, right knee surgery, right lumpectomy, ovarian cystectomy, tubal ligation Smoke: No ALCOHOL: none Drugs: None Lives: with Family Review of Systems Constitutional: Yes: Chills, Malaise; No: Fever, Sweats, Weakness, Other Eyes: No: Pain, Vision change, Conjunctivae inflammation, Eyelid inflammation, Other, Redness ENT: No: Ear pain, Ear discharge, Nose pain, Nose discharge, Nose congestion, Mouth pain, Mouth swelling, Throat pain, Throat swelling, Other Respiratory: No: Cough, Dry, Shortness of breath, SOB with excertion, Wheezing, Hemoptysis, Pleuritic Pain, Sputum, Wheezing, Other Cardiovascular: No: Chest Pain, Palpitations, Orthopnea, Paroxysmal Noc. Dys pnea, Edema, Lt Headedness, Other Gastrointestinal: Nausea, Vomiting, Abdominal Pain, Diarrhea; No: Constipation, Melena, Hematochezia, Other Genitourinary: No Dysuria, No Frequency, No Incontinence, No Hematuria, No Retention, No Other Musculoskeletal: No: other, neck pain, shoulder pain, arm pain, back pain, hand pain, leg pain, foot pain Skin: No: Rash, Lesions, Jaundice, Bruising, Other Neurological: No: Weakness, Numbness, Incoordination, Change in speech, C onfusion, Seizures, Other Allergies: Coded Allergies: Ciprofloxacin (Verified Allergy, Mild, rash, 03/17/25) Medications Current Medications Medications Dose Ordered Sig/Mitali Route Start Time Stop Time Status Last Admin Dose Admin Acetaminophen 325 mg Q4HP PRN PO 03/17/25 03:30 UNV Ondansetron HCl 4 mg Q4HP PRN IV 03/17/25 03:30 UNV Ciprofloxacin 200 ml @ 200 mls/hr Q12HR IV 03/17/25 03:30 UNV Metronidazole 100 ml @ 100 mls/hr Q8HR IV 03/17/25 03:30 UNV Exam Vital Signs Vital Signs Date Time Temp Pulse Resp B/P (MAP) Pulse Ox O2 Delivery O2 Flow Rate FiO2 03/16/25 23:57 89 19 107/79 03/16/25 23:48 98.7 98 98.7 General Appearance: Alert, Oriented X3, Cooperative, No acute distress HEENT: Atraumatic, PERRLA, EOMI, Other (Dry mucous membranes) Respiratory: Clear to auscultation, Normal air movement Cardiovascular: Normal S1, Normal S2, No murmurs, Other (Tachycardic) Abdominal: Normal bowel sounds, Soft, Other (Right upper quadrant tenderness to palpation with radiation of pain to the right lower quadrant) Extremities: No edema, Normal pulses Skin: No rashes, No breakdown, No significant lesion Neuro: Normal gait, Normal speech, Strength at 5/5 X4 ext, Sensation intact Psych/Mental Status: Mental status NL, Mood NL Labs/Xrays Labs Test 03/16/25 22:22 03/16/25 21:30 03/16/25 20:49 03/16/25 20:40 Range/Units Troponin I High Sensitivity < 3 L </=34 ng/L White Blood Count 11.5 H 4.4-10.8 10^3/uL Red Blood Count 4.87 4.0-5.20 10^6/uL Hemoglobin 13.5 12.2-16.2 g/dL Hematocrit 41.1 36.0-46.0 % Mean Corpuscular Volume 84.4 80.0-100.0 fL Mean Corpuscular Hemoglobin 27.8 L 28.0-32.0 pg Mean Corpuscular Hemoglobin Concent 33.0 32.0-36.0 g/dL Red Cell Distribution Width 14.6 H 11.8-14.3 % Platelet Count 286 140-450 10^3/uL Mean Platelet Volume 8.2 6.9-10.8 fL Neutrophils (%) (Auto) 77.5 37.0-80.0 % Lymphocytes (%) (Auto) 17.8 10.0-50.0 % Monocytes (%) (Auto) 3.7 0.0-12.0 % Eosinophils (%) (Auto) 0.6 0.0-7.0 % Basophils (%) (Auto) 0.4 0.0-2.0 % Neutrophils # (Auto) 8.9 H 1.6-8.6 10 ^3/uL Lymphocytes # (Auto) 2.0 0.4-5.4 10 ^3/uL Monocytes # (Auto) 0.4 0-1.3 10 ^3/uL Eosinophils # (Auto) 0.1 0-0.8 10 ^3/uL Basophils # (Auto) 0 0-0.2 10 ^3/uL Nucleated Red Blood Cells 0.0 % Sodium Level 138 136-145 mmol/L Potassium Level 4.1 3.5-5.1 mmol/L Chloride Level 105 98-107 mmol/L Carbon Dioxide Level 25 20-31 mmol/L Anion Gap 8 5-15 Blood Urea Nitrogen 11 9-23 mg/dL Creatinine 0.74 0.550-1.02 mg/dL Glomerular Filtration Rate Calc 104 >90 mL/min BUN/Creatinine Ratio 14.9 10.0-20.0 Serum Glucose 98 74-106 mg/dL Lactic Acid Level 1.8 0.4-2.0 mmol/L Calcium Level 9.5 8.7-10.4 mg/dL Total Bilirubin 0.3 0.2-1.0 mg/dL Aspartate Amino Transferase (AST) < 8 L 13-40 U/L Alanine Aminotransferase (ALT) < 9 7-40 U/L Alkaline Phosphatase 83 46-116 U/L B-Type Natriuretic Peptide 1.65 0-100 pg/mL Total Protein 7.4 5.7-8.2 g/dL Albumin 4.5 3.2-4.8 g/dL Lipase 58 H 12-53 U/L Beta HCG, Quantitative 0.9 L 1.5-4.2 mIU/mL POC Glucose 105 70-106 mg/dl Urine Color Yellow Yellow Urine Clarity Clear Clear Urine pH 6.0 5.0-9.0 Urine Specific [place] 1.021 1.001-1.035 Urine Protein Negative Negative Urine Ketones Trace Negative Urine Blood Negative Negative /uL Urine Nitrite Negative Negative Urine Bilirubin Negative Negative Urine Urobilinogen Normal Negative mg/dL Urine Leukocyte Esterase Negative Negative /uL Urine RBC <1 0 - 4 /hpf Urine Microscopic WBC 3 0-5 /HPF Urine Squamous Epithelial Cells Few <5 /hpf Urine Amorphous Crystals Few None Seen /hpf Urine Bacteria None seen None Seen /hpf Urine Glucose Normal Normal mg/dL Assessment/Plan Assessment/Plan Acute intractable abdominal pain due to possible cholecystitis vs gastritis vs ileitis/sigmoiditis Sepsis due to above Pneumobilia - completed colonoscopy with polypectomy which showed mild ileitis/sigmoiditis - CT abdomen pelvis: Limited evaluation given noncontrast technique. No definite acute abdominopelvic abnormalities. Trace pneumobilia, favored iatrogenic. - history of gallbladder sludge; ordered right upper quadrant ultrasound - serum lipase-58 - ordered lipid panel, serum triglycerides - IV metronidazole, IV ceftriaxone - IV NS 1.5 L bolus - IV ondansetron as needed History of depression Questionable bipolar disorder Irritable bowel syndrome - resumed home medication quetiapine, bupropion and divalproex Peptic ulcer disease - IV Protonix 40 mg daily Prediabetes - ordered Hb A1c - monitor DVT prophylaxis: SCDs Goals of care: Full code, discussed for >16 minutes on 03/17/2025 Plan discussed with patient Plan discussed with Dr. Lorenzana Plan discussed with: Patient, Other (RN) My Orders Orders - ROSY MONTERROSO RESIDENT Procedure Category Date Status Time Admit ADMIT 03/17/25 Transmitted 03:16 Allergies HYUN 03/17/25 Transmitted 03:16 Code Status CODE 03/17/25 Transmitted 03:16 Acetaminophen Tablet PHA 03/17/25 Transmitted (Tylenol Tablet) 03:30 Ondansetron Hcl PHA 03/17/25 Transmitted (Zofran) 03:30 Npo (Nothing By DIET 03/17/25 Verified Mouth) Diet Breakfast Condition: Unstable HYUN 03/17/25 Transmitted 03:16 Sequential HYUN 03/17/25 Transmitted Compression Device Notify Md Of Changes HYUN 03/17/25 Transmitted From Base 03:16 NS PHA 03/17/25 Transmitted 03:30 Ciprofloxacin PHA 03/17/25 Transmitted 400mg/200ml (Cipro Iv) 03:30 Metronidazole Ivpb PHA 03/17/25 Transmitted Flagyl 03:30 Drug Screen LAB 03/17/25 Transmitted 03:16 Covid19 Antigen Anni LAB 03/17/25 Transmitted Rapid Influenza A&B LAB 03/17/25 Transmitted 03:16 Date of Service: Mar 17, 2025 Billing Provider: SAVANNAH LORENZANA MD Common Visit Codes: 30335-POQUCUP INP/OBS CARE (HIGH) ROSY MONTERROSO RESIDENT Mar 17, 2025 03:20
[2025-03-17] MEDS ORDERED: ACETAMINOPHEN 325 MG TAB PO PRN (03:30)
[2025-03-17 04:14] LABS: Amphetamine Screen, Urine Neg (NEGATIVE)
[2025-03-17 04:16] LABS: Barbiturate Scree,Urine Neg (NEGATIVE); Benzodiazephine Screen, Urine Neg (NEGATIVE); Cannabinoid Screen, Urine Neg (NEGATIVE); Cocaine Screen, Urine Neg (NEGATIVE); Opiate Scree,Urine Neg (NEGATIVE); Phencyclidine Screen, Urine Neg (NEGATIVE)
[2025-03-17] MEDS: SODIUM CHLORIDE 0.9% 500 ML IV ONE (04:36)
[2025-03-17] MEDS: metroNIDAZOLE 500MG/100ML 100 ML IV SCH (04:39)
[2025-03-17] MEDS: PANTOPRAZOLE 40 MG/10 ML VIAL INJ IV ONE (04:39)
[2025-03-17] MEDS: CIPROFLOXACIN 400MG/200ML 200 ML IV SCH (05:19)
[2025-03-17 05:36] LABS: COVID19 ANTIGEN SOFIA FIA NEGATIVE (NEGATIVE); Rapid Influenza A Negative (Negative); Rapid Influenza B Negative (Negative)
[2025-03-17 05:41] LABS: Basophils # (auto) 0 10 ^3/uL (0-0.2); Basophils % (auto) 0.3 % (0.0-2.0); Eosinophils # (auto) 0.1 10 ^3/uL (0-0.8); Eosinophils % (auto) 0.7 % (0.0-7.0); Hematocrit 37.8 % (36.0-46.0); Hemoglobin 12.4 g/dL (12.2-16.2); Lymphocytes # (auto) 2.8 10 ^3/uL (0.4-5.4); Lymphocytes % (auto) 27.5 % (10.0-50.0); Mean Corpuscular Hemoglobin 27.4 pg (28.0-32.0); Mean Corpuscular Hgb Conc. 32.7 g/dL (32.0-36.0); Mean Corpuscular Volume 83.8 fL (80.0-100.0); Monocytes # (auto) 0.5 10 ^3/uL (0-1.3); Monocytes % (auto) 4.8 % (0.0-12.0); Neutrophils # (auto) 6.7 10 ^3/uL (1.6-8.6); Neutrophils % (auto) 66.7 % (37.0-80.0); Platelet Count (auto) 254 10^3/uL (140-450); Red Blood Cells 4.51 10^6/uL (4.0-5.20); Red Cell Distribution Width 14.5 % (11.8-14.3); White Blood Cell 10.1 10^3/uL (4.4-10.8)
[2025-03-17 05:46] LABS: Potassium 3.6 mmol/L (3.5-5.1); Sodium 140 mmol/L (136-145)
[2025-03-17 05:47] LABS: Anion Gap 8 (5-15); Carbon Dioxide 24 mmol/L (20-31)
[2025-03-17 05:52] LABS: BUN/Creatinine Ratio 13.4 (10.0-20.0); Blood Urea Nitrogen 9 mg/dL (9-23); Triglycerides 128 mg/dL (< 150)
[2025-03-17 05:53] LABS: Folate (Folic Acid) 17.91 ng/mL (>5.38)
[2025-03-17 05:54] LABS: Cholesterol 179 mg/dL (< 200); Glucose 91 mg/dL (74-106); HDL Cholesterol 54 mg/dL (40-59)
[2025-03-17 06:01] LABS: Calcium 8.5 mg/dL (8.7-10.4); Chloride 108 mmol/L (98-107); LDL Cholesterol 107 mg/dL (< 100)
[2025-03-17] MEDS: cefTRIAXone 1GM/50ML D5W 50 ML IV SCH (06:15)
[2025-03-17 07:00] VITALS: BP 114/79; PULSE 86; RESP 16; TEMP 97.5
[2025-03-17] MEDS: diphenhdrAMINE HCL 25 MG CAP PO ONE (07:03)
--- NOTE | 2025-03-17 07:32 | DVH ---
EXAM: US Abdomen Limited, Right Upper Quadrant CLINICAL INDICATION: RUQ pain, pneumobilia TECHNIQUE: Real-time ultrasound of the right upper quadrant with image documentation. COMPARISON: None FINDINGS: LIVER: Liver measures up to 16.3 cm. Fatty infiltration of the liver. No intrahepatic bile duct d ilation. GALLBLADDER: Negative Cardozo's sign was reported by the furniture painter. Gallbladder not visualized. COMMON BILE DUCT: Unremarkable as visualized. No stones. No dilation. PANCREAS: Unremarkable as visualized. RIGHT KIDNEY: Right kidney measures up to 10.1 cm. No stones. No hydronephrosis. OTHER FINDINGS: . . IMPRESSION: Fatty infiltration of the liver.
[2025-03-17 08:26] VITALS: BP 101/68; PULSE 81; RESP 16; TEMP 97.7; O2SAT 99
--- NOTE | 2025-03-17 09:11 | ECG ---
[facility] Test Date: 2025-03-17 Test Time: 03:42:08 Pat Name: PASTORA HASSAN Department: ED Room: [address] [place] [address] Gender: F Registered Representative: KRISTY : 1980 Requested By: PILAR DELCID Order Number: [id number] Reading MD: Melecio Aly Measurements Intervals [place] Rate: 74 P: 83 ND: 158 QRS: 71 QRSD: 95 T: 33 QT: 415 QTc: 461 Interpretive Statements Sinus rhythm Low voltage, precordial leads Borderline T abnormalities, anterior leads Electronically Signed On 03-17-2025 13:21:37 PDT by Melecio Aly Please click the below link to view image of tracing.
[2025-03-17] MEDS: PANTOPRAZOLE 40 MG/10 ML VIAL INJ IV SCH (09:23)
[2025-03-17] MEDS ORDERED: PANTOPRAZOLE 40 MG TAB PO SCH (10:00)
[2025-03-17] MEDS ORDERED: PANTOPRAZOLE 40 MG/10 ML VIAL INJ IV SCH (10:00)
[2025-03-17 13:25] VITALS: BP 102/71; PULSE 84; RESP 20; TEMP 98.3; O2SAT 99
--- NOTE | 2025-03-17 14:11 | DVHINCON2 ---
GI Consult Consult Note GI consult note Date of Consultation: 03/17/2025 Chief Complaint: Abdominal pain, history of PUD Referring Physician: Dr. Lopez H&P: 44-year-old female with past medical history of prediabetes, irritable bowel sounds, peptic ulcer, questionable bipolar disorder,, depression gallbladder sludge presents to ER with abdominal pain. Patient mostly complaining of right side abdominal burning sensation. Also complains of nausea and vomiting for two days, mostly food. No hematemesis. Patient also has loose stools for 2 times, yellow in color. No melena or red blood in stool Status post EDG 02/15/2025, 1 cm hiatal hernia, gastritis, polyps. Pathology showing chronic inactive gastritis mild with reactive gastropathy Status post colonoscopy 03/08/2025, mild terminal ileitis with multiple small aphthous like ulcers seen in the distal 5-10 cm of the terminal ileum from which biopsies were obtained, 2-3 mm benign appearing ascending colon polyp, minimal nonspecific sigmoiditis Pathology report of colonoscopy, hyperplastic polyp. Mild acute ileitis, colonic mucosa with chronic nonspecific inflammation and lymphoid aggregate Past Medical History: prediabetes, irritable bowel syndrome, peptic ulcer disease, questionable bipolar disorder, depression Past Surgical History: section, right knee surgery, right lumpectomy, ovarian cystectomy, tubal ligation Social History: NO smoking, drinking ETOH and use of illegal drugs. Family History: Noncontributory Review of Systems: Constitutional: no fever, chill, weight loss HEENT: no eye pain, no hearing loss, no oral lesion, no scleral icterus Heart: no chest pain, no chest pressure Lung: no cough, no dyspnea with exertion Abdomen: see HPI Physical exam: General: NAD, AAOX3 Chest: lung martinez clear to auscultation Heart: RRR, no murmur Abdomen: Right abdominal tenderness to palpation, +BS Labs: Labs Test 03/17/25 04:52 03/17/25 04:42 03/16/25 22:22 03/16/25 21:30 Range/Units White Blood Count 10.1 4.4-10.8 10^3/uL Red Blood Count 4.51 4.0-5.20 10^6/uL Hemoglobin 12.4 12.2-16.2 g/dL Hematocrit 37.8 36.0-46.0 % Mean Corpuscular Volume 83.8 80.0-100.0 fL Mean Corpuscular Hemoglobin 27.4 L 28.0-32.0 pg Mean Corpuscular Hemoglobin Concent 32.7 32.0-36.0 g/dL Red Cell Distribution Width 14.5 H 11.8-14.3 % Platelet Count 254 140-450 10^3/uL Mean Platelet Volume 8.1 6.9-10.8 fL Neutrophils (%) (Auto) 66.7 37.0-80.0 % Lymphocytes (%) (Auto) 27.5 10.0-50.0 % Monocytes (%) (Auto) 4.8 0.0-12.0 % Eosinophils (%) (Auto) 0.7 0.0-7.0 % Basophils (%) (Auto) 0.3 0.0-2.0 % Neutrophils # (Auto) 6.7 1.6-8.6 10 ^3/uL Lymphocytes # (Auto) 2.8 0.4-5.4 10 ^3/uL Monocytes # (Auto) 0.5 0-1.3 10 ^3/uL Eosinophils # (Auto) 0.1 0-0.8 10 ^3/uL Basophils # (Auto) 0 0-0.2 10 ^3/uL Nucleated Red Blood Cells 0.0 % Sodium Level 140 136-145 mmol/L Potassium Level 3.6 3.5-5.1 mmol/L Chloride Level 108 H 98-107 mmol/L Carbon Dioxide Level 24 20-31 mmol/L Anion Gap 8 5-15 Blood Urea Nitrogen 9 9-23 mg/dL Creatinine 0.67 0.550-1.02 mg/dL Glomerular Filtration Rate Calc 112 >90 mL/min BUN/Creatinine Ratio 13.4 10.0-20.0 Serum Glucose 91 74-106 mg/dL Hemoglobin A1c 5.9 H <5.7 % A1C Calcium Level 8.5 L 8.7-10.4 mg/dL Triglycerides Level 128 < 150 mg/dL Cholesterol Level 179 < 200 mg/dL LDL Cholesterol 107 H < 100 mg/dL HDL Cholesterol 54 40-59 mg/dL Vitamin B12 Level 712 211-911 pg/mL Vitamin D 25-Hydroxy 26.7 L 30.0-100 ng/mL Folic Acid 17.91 >5.38 ng/mL Thyroid Stimulating Hormone (TSH) 4.18 0.55-4.78 uIU/mL Influenza Type A Antigen Negative Negative Influenza Type B Antigen Negative Negative SARS-CoV-2 Antigen (Rapid) Negative NEGATIVE Troponin I High Sensitivity < 3 L </=34 ng/L Lactic Acid Level 1.8 0.4-2.0 mmol/L Total Bilirubin 0.3 0.2-1.0 mg/dL Aspartate Amino Transferase (AST) < 8 L 13-40 U/L Alanine Aminotransferase (ALT) < 9 7-40 U/L Alkaline Phosphatase 83 46-116 U/L B-Type Natriuretic Peptide 1.65 0-100 pg/mL Total Protein 7.4 5.7-8.2 g/dL Albumin 4.5 3.2-4.8 g/dL Lipase 58 H 12-53 U/L Beta HCG, Quantitative 0.9 L 1.5-4.2 mIU/mL Test 03/16/25 20:49 03/16/25 20:40 Range/Units POC Glucose 105 70-106 mg/dl Urine Color Yellow Yellow Urine Clarity Clear Clear Urine pH 6.0 5.0-9.0 Urine Specific Cope 1.021 1.001-1.035 Urine Protein Negative Negative Urine Ketones Trace Negative Urine Blood Negative Negative /uL Urine Nitrite Negative Negative Urine Bilirubin Negative Negative Urine Urobilinogen Normal Negative mg/dL Urine Leukocyte Esterase Negative Negative /uL Urine RBC <1 0 - 4 /hpf Urine Microscopic WBC 3 0-5 /HPF Urine Squamous Epithelial Cells Few <5 /hpf Urine Amorphous Crystals Few None Seen /hpf Urine Bacteria None seen None Seen /hpf Urine Glucose Normal Normal mg/dL Urine Opiates Screen Neg NEGATIVE Urine Fentanyl Screen Neg NEGATIVE Urine Barbiturates Screen Neg NEGATIVE Urine Phencyclidine Screen Neg NEGATIVE Urine Amphetamines Screen Neg NEGATIVE Urine Benzodiazepines Screen Neg NEGATIVE Urine Cocaine Screen Neg NEGATIVE Urine Cannabinoids Screen Neg NEGATIVE Imaging: CT abdomen pelvis Impression: 1. Limited evaluation given noncontrast technique. 2. No definite acute abdominopelvic abnormalities. 3. Trace pneumobilia, favored iatrogenic. Abdominal ultrasound IMPRESSION: Fatty infiltration of the liver. Assessment: Intractable Abdominal pain Gastritis Possible Mild Crohn's ileitis Plan: Discussed with Dr. Chua IBD panel Small-bowel series with Gastrografin Continue antibiotics DC NSAIDs discussed Clear liquid diet advance as tolerated Possible plan to start patient on Entocort if symptoms do not improve Plan discussed with patient, and by telephone Thank you for this consult Date of Service: Mar 17, 2025 Billing Provider: EDMUNDO PRATER Common Visit Codes: CONSULT ONLY Consultation Codes: [id number] CONSULT <60MIN EDMUNDO PRATER Mar 17, 2025 14:11
[2025-03-17] MEDS: GASTROGRAFIN 120 ML SOL ONE (14:31)
[2025-03-17] MEDS: ONDANSETRON HCL 4 MG/2 ML VIAL IV PRN (16:42)
[2025-03-17] MEDS ORDERED: MORPHINE SULFATE INJ 2 MG/ml SYRG IV PRN (17:00)
[2025-03-17 17:11] VITALS: BP 95/71; PULSE 88; RESP 20; TEMP 98; O2SAT 98
[2025-03-17] MEDS: SODIUM CHLORIDE 0.9% 1,000 ML IV ONE (17:30)
[2025-03-17] MEDS ORDERED: QUEtiapine FUMARATE 100 MG TAB PO SCH (18:00)
--- NOTE | 2025-03-17 19:07 | DVH ---
Procedure: XY SMALL BOWEL SERIES-W GASTROGRA Reason for study/Clinical History: abd pain, possible chron's Comparison Study: None available at time of dictation. Technique: Single contrast small bowel series performed. Findings: [employer] image demonstrates possible small bowel ileus in the left upper quadrant otherwise normal bowel -gas pattern After ingestion of the 120 mL of Gastrografin at 15 minutes the contrast column is in the proximal il eum. At 30 minutes contrast still in the proximal ileum At 45 minutes in the distal ileum. And at 1 hour its in the ascending colon. IMPRESSION: 1. No acute findings. Recommend a follow-up CT examination of the abdomen and pelvis with contrast fo r further assessment
--- NOTE | 2025-03-17 19:44 | DVHPNRES ---
Progress Note Date Seen: Mar 17, 2025 Resident Creating Document: DUNIA LUNA CASA Has the PT tested + for MRSA If YES, has PT been informed?: No Medical Necessity Reason Pt with a Central, PICC or Fol: No Subjective Review of Systems Patient is a 44-year-old female with past medical history of prediabetes, irritable bowel syndrome, peptic ulcer disease, questionable bipolar disorder, depression, gallbladder sludge, who comes in due to abdominal pain. According to the patient, she started experiencing abdominal pain which started yesterday and progressively worsened overnight, associated with 2 episode of vomiting which she describes as coffee-ground dark in color and 2 episodes of watery bowel movement. Patient localizes the pain to the right upper quadrant with radiation to the right lower quadrant, describes it as sharp and burning in nature constant and 5/10 intensity right now. Patient notes she had a similar pain in August when she was diagnosed with peptic ulcer disease at [facility]. Of note, patient completed colonoscopy on 03/08/2025 and EGD in January 2024. Patient was noted to have a white cell count of 11.5, serum lipase 58 and tachycardic. On review of systems patient is complaining of fatigue, chills, nausea, vomiting, depression and anxiety. Last menstrual period was on 03/04/2025. CT abdomen pelvis showed trace pneumobilia otherwise unremarkable. PMHx: prediabetes, irritable bowel syndrome, peptic ulcer disease, questionable bipolar disorder, depression PSHx: section, right knee surgery, right lumpectomy, ovarian cystectomy, tubal ligation Family history: Noncontributory Social history: Denies smoking or any other drug use. Lives with the family at home Home medication: Protonix, bupropion, divalproex, quetiapine Allergic history: Ciprofloxacin Patient seen and examined at the bedside. Patient is still complaining of abdominal pain. Objective vital signs Vital Sign Date Time Temp Pulse Resp B/P (MAP) Pulse Ox O2 Delivery O2 Flow Rate FiO2 03/17/25 17:11 98.0 88 20 95/71 (79) 98 98.0 03/17/25 13:28 Room Air* 0 21 Total Intake and Output 03/16/25 03/16/25 03/17/25 15:00 23:00 07:00 Intake Total 1600 ml Balance 1600 ml medications Current Medications Medications Dose Ordered Sig/Mitali Route Start Time Stop Time Status Last Admin Dose Admin Acetaminophen 325 mg Q4HP PRN PO 03/17/25 03:30 Ondansetron HCl 4 mg Q4HP PRN IV 03/17/25 03:30 03/17/25 16:42 4 MG Metronidazole 100 ml @ 100 mls/hr Q8HR IV 03/17/25 03:30 03/17/25 13:55 100 MLS/HR Patient Own Medication 200 mg DAILY PO 03/17/25 10:00 Hold Divalproex Sodium 500 mg DAILY PO 03/17/25 10:00 03/17/25 09:23 500 MG Ceftriaxone Sodium 50 ml @ 100 mls/hr DAILY@ IV 03/17/25 06:15 03/17/25 09:22 100 MLS/HR Ceftriaxone Sodium 50 ml @ 100 mls/hr DAILY@ IV 03/18/25 09:00 Cancel Pantoprazole Sodium 40 mg BID IV 03/17/25 10:00 03/17/25 09:23 40 MG Acetaminophen/ Hydrocodone Bitart 1 tab Q4HPRN PRN PO 03/17/25 09:00 Morphine Sulfate 1 mg Q4HP PRN IV 03/17/25 17:00 Quetiapine Fumarate 400 mg HS PO 03/17/25 22:00 laboratory and microbiology Laboratory Tests 03/17/25 04:52 Test 03/17/25 04:52 Range/Units Serum Glucose 91 74-106 mg/dL Labs and/or images reviewed: Labs reviewed by me, Image(s) reviewed by me Problem List/Assessment/Plan Problem List/Assessment/Plan Intractable abdominal pain, likely due to peptic ulcer disease/cholelithiasis/ cholangitis Sepsis, likely due to above History of irritable bowel syndrome History of peptic ulcer disease Fatty liver CT abdominopelvic shows, Trace pneumobilia, favored iatrogenic GI consulted, recommended small bowel series, finding shows No acute findings. Recommend a follow-up CT examination of the abdomen and pelvis with contrast for further assessment Protonix Empiric antibiotic, Rocephin and Flagyl Pain management History of depression, anxiety Continue home meds Prediabetes DIET: Clear liquids DVT PROPHYLAXIS: Lovenox GI PROPHYLAXIS:: Protonix CODE STATUS: Goal of care discussed for more than 18 minutes, full code DISPOSITION: Med/surge Patient's status and plan discussed with the patient. Case discussed with Dr. Haq. Plan discussed with: Patient (RN) My Orders My Orders Orders - DUNIA LUNA Procedure Category Date Status Time * Gi [facility] CONS 03/17/25 Transmitted 08:45 Hydrocodone-Acet PHA 03/17/25 In Process 5/325mg Tab ([place] 09:00 Sodium Chloride 0.9% PHA 03/17/25 In Process 17:00 Morphine Sulfate PHA 03/17/25 In Process Injection 17:00 DUNIA LUNA RESARACELY Mar 17, 2025 19:44
[2025-03-17 20:00] VITALS: PULSE 89; RESP 19
[2025-03-17 21:00] VITALS: BP_SYST 116; BP_SYST 99; BP_DIAS 62; BP_DIAS 69; PULSE 60; PULSE 89; RESP 18; RESP 19; TEMP 97.6; TEMP 98; O2SAT 97; O2SAT 99
[2025-03-17] MEDS: QUEtiapine FUMARATE 100 MG TAB PO SCH (22:08)
[2025-03-17] MEDS: HYDROcodone-ACET 5/325MG TAB PO PRN (22:09)
[2025-03-18 05:00] VITALS: BP 107/44; PULSE 78; RESP 17; TEMP 97.7; O2SAT 99
[2025-03-18 06:32] LABS: Basophils # (auto) 0 10 ^3/uL (0-0.2); Basophils % (auto) 0.4 % (0.0-2.0); Eosinophils # (auto) 0.1 10 ^3/uL (0-0.8); Eosinophils % (auto) 1.3 % (0.0-7.0); Lymphocytes # (auto) 2.4 10 ^3/uL (0.4-5.4); Mean Corpuscular Hemoglobin 27.2 pg (28.0-32.0); Mean Corpuscular Hgb Conc. 32.4 g/dL (32.0-36.0); Mean Corpuscular Volume 83.8 fL (80.0-100.0); Monocytes # (auto) 0.3 10 ^3/uL (0-1.3); Monocytes % (auto) 5.1 % (0.0-12.0); Neutrophils # (auto) 3.6 10 ^3/uL (1.6-8.6); Neutrophils % (auto) 56.2 % (37.0-80.0); Platelet Count (auto) 263 10^3/uL (140-450); Red Blood Cells 4.41 10^6/uL (4.0-5.20); Red Cell Distribution Width 14.4 % (11.8-14.3); White Blood Cell 6.5 10^3/uL (4.4-10.8)
[2025-03-18 06:54] LABS: Alanine Aminotransferase < 9 U/L (7-40); Albumin 3.7 g/dL (3.2-4.8); Alkaline Phosphatase 71 U/L (46-116); Anion Gap 7 (5-15); Aspartate Aminotransferase < 8 U/L (13-40); Bilirubin, Total 0.6 mg/dL (0.2-1.0); Blood Urea Nitrogen 7 mg/dL (9-23); Carbon Dioxide 25 mmol/L (20-31); Chloride 109 mmol/L (98-107); Glucose 94 mg/dL (74-106); Potassium 3.8 mmol/L (3.5-5.1); Sodium 141 mmol/L (136-145); Total Protein 6.2 g/dL (5.7-8.2)
[2025-03-18 09:00] VITALS: BP 99/68; PULSE 78; RESP 20; TEMP 97.8; O2SAT 95
[2025-03-18] MEDS ORDERED: cefTRIAXone 1GM/50ML D5W 50 ML IV SCH (09:00)
[2025-03-18] MEDS: SODIUM CHLORIDE 0.9% 1,000 ML IV ONE (10:12)
[2025-03-18 12:37] VITALS: BP 90/57; PULSE 77; RESP 20; TEMP 98.3; O2SAT 99
[2025-03-18 17:23] VITALS: BP 95/75; PULSE 73; RESP 20; TEMP 98; O2SAT 96
[2025-03-18] MEDS ORDERED: DICYCLOMINE HCL 10 MG CAP PO PRN (17:45)
--- NOTE | 2025-03-18 18:13 | DVHPNRES ---
Progress Note Date Seen: Mar 18, 2025 Resident Creating Document: DUNIA LUNA CASA Has the PT tested + for MRSA If YES, has PT been informed?: No Medical Necessity Reason Pt with a Central, PICC or Fol: No Subjective Review of Systems Patient seen and examined at bedside. Patient is still complaining of mild abdominal pain and nausea. Objective vital signs Vital Sign Date Time Temp Pulse Resp B/P (MAP) Pulse Ox O2 Delivery O2 Flow Rate FiO2 03/18/25 17:23 98.0 73 20 95/75 (82) 96 98.0 03/18/25 08:00 Room Air* 0 21 Total Intake and Output 03/17/25 03/17/25 03/18/25 15:00 23:00 07:00 Intake Total 100 ml 150 ml 1060 ml Balance 100 ml 150 ml 1060 ml medications Current Medications Medications Dose Ordered Sig/Mitali Route Start Time Stop Time Status Last Admin Dose Admin Acetaminophen 325 mg Q4HP PRN PO 03/17/25 03:30 Ondansetron HCl 4 mg Q4HP PRN IV 03/17/25 03:30 03/17/25 20:57 4 MG Metronidazole 100 ml @ 100 mls/hr Q8HR IV 03/17/25 03:30 03/18/25 13:33 100 MLS/HR Patient Own Medication 200 mg DAILY PO 03/17/25 10:00 Hold Divalproex Sodium 500 mg DAILY PO 03/17/25 10:00 03/18/25 10:07 500 MG Ceftriaxone Sodium 50 ml @ 100 mls/hr DAILY@ IV 03/17/25 06:15 03/18/25 08:38 100 MLS/HR Ceftriaxone Sodium 50 ml @ 100 mls/hr DAILY@09 IV 03/18/25 09:00 Cancel Pantoprazole Sodium 40 mg BID IV 03/17/25 10:00 03/18/25 10:07 40 MG Acetaminophen/ Hydrocodone Bitart 1 tab Q4HPRN PRN PO 03/17/25 09:00 03/17/25 22:09 1 TAB Morphine Sulfate 1 mg Q4HP PRN IV 03/17/25 17:00 Quetiapine Fumarate 400 mg HS PO 03/17/25 22:00 03/17/25 22:08 400 MG Dicyclomine HCl 10 mg TIDP PRN PO 03/18/25 17:45 Examination General Appearance: Alert, Oriented X3, Cooperative, No acute distress HEENT: Atraumatic, PERRLA, EOMI, Mucous membrane moist/pink Respiratory: Clear to auscultation, Normal air movement Cardiovascular: Regular rate, Normal S1, Normal S2, No murmurs, no chest wall tenderness Abdominal: Mild abdominal tenderness Extremities: No clubbing, No cyanosis, No edema, Normal pulses, No tenderness/swelling Skin: No rashes, No breakdown, No significant lesion Neuro: Normal gait, Normal speech, Strength at 5/5 X4 ext, Normal tone, Sensation intact, Cranial nerves 3-12 NL, Reflexes 2+ Psych/Mental Status: Mental status NL, Mood NL laboratory and microbiology Laboratory Tests 03/18/25 05:44 Test 03/18/25 05:44 Range/Units Serum Glucose 94 74-106 mg/dL Microbiology Date/Time Source Procedure Growth Status 03/16/25 21:30 Blood Blood Culture - Preliminary NO GROWTH AFTER 24 HOURS OF INCUBATION. Resulted Labs and/or images reviewed: Labs reviewed by me, Image(s) reviewed by me Problem List/Assessment/Plan Problem List/Assessment/Plan Intractable abdominal pain, likely due to peptic ulcer disease/cholelithiasis/ cholangitis Sepsis, likely due to above History of irritable bowel syndrome History of peptic ulcer disease Fatty liver CT abdominopelvic shows, Trace pneumobilia, favored iatrogenic GI consulted, recommended small bowel series, finding shows No acute findings. Recommend a follow-up CT examination of the abdomen and pelvis with contrast for further assessment Protonix Empiric antibiotic, Rocephin and Flagyl Pain management Dicyclomine History of depression, anxiety Continue home meds Prediabetes DIET: Clear liquids DVT PROPHYLAXIS: Lovenox GI PROPHYLAXIS:: Protonix CODE STATUS: Goal of care discussed for more than 18 minutes, full code DISPOSITION: Med/surge Patient's status and plan discussed with the patient. Case discussed with Dr. Haq. Plan discussed with: Patient, Other (RN) DUNIA LUNA Mar 18, 2025 18:13
[2025-03-18 20:00] VITALS: PULSE 88; RESP 20; O2SAT 98
[2025-03-18 21:00] VITALS: BP 92/59; PULSE 88; RESP 20; TEMP 98.2; O2SAT 98
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
[2025-03-19] VITALS (8 sets, daily range): BP systolic 75–103; BP diastolic 48–74; PULSE 75–89; RESP 17–20; TEMP 97.6–98.4; O2SAT 97–98
[2025-03-19 07:31] LABS: Basophils # (auto) 0 10 ^3/uL (0-0.2); Basophils % (auto) 0.2 % (0.0-2.0); Eosinophils # (auto) 0.1 10 ^3/uL (0-0.8); Eosinophils % (auto) 1.3 % (0.0-7.0); Hematocrit 35.7 % (36.0-46.0); Hemoglobin 11.8 g/dL (12.2-16.2); Lymphocytes # (auto) 2.5 10 ^3/uL (0.4-5.4); Lymphocytes % (auto) 39.7 % (10.0-50.0); Mean Corpuscular Hemoglobin 27.6 pg (28.0-32.0); Mean Corpuscular Hgb Conc. 33.2 g/dL (32.0-36.0); Mean Corpuscular Volume 83.1 fL (80.0-100.0); Monocytes # (auto) 0.4 10 ^3/uL (0-1.3); Monocytes % (auto) 6.8 % (0.0-12.0); Neutrophils # (auto) 3.3 10 ^3/uL (1.6-8.6); Platelet Count (auto) 250 10^3/uL (140-450); Red Blood Cells 4.29 10^6/uL (4.0-5.20); Red Cell Distribution Width 14.3 % (11.8-14.3); White Blood Cell 6.4 10^3/uL (4.4-10.8)
[2025-03-19 07:41] LABS: Alanine Aminotransferase < 9 U/L (7-40); Albumin 3.8 g/dL (3.2-4.8); Alkaline Phosphatase 68 U/L (46-116); Anion Gap 9 (5-15); Aspartate Aminotransferase < 8 U/L (13-40); BUN/Creatinine Ratio 6.9 (10.0-20.0); Blood Urea Nitrogen 5 mg/dL (9-23); Calcium 9.3 mg/dL (8.7-10.4); Carbon Dioxide 26 mmol/L (20-31); Chloride 106 mmol/L (98-107); Glucose 84 mg/dL (74-106); Potassium 3.6 mmol/L (3.5-5.1); Sodium 141 mmol/L (136-145); Total Protein 6.1 g/dL (5.7-8.2)
[2025-03-19 07:42] LABS: Bilirubin, Total 0.5 mg/dL (0.2-1.0)
[2025-03-19] MEDS ORDERED: SODIUM CHLORIDE 0.9% 1,000 ML IV ONE (12:30)
[2025-03-19] MEDS: SODIUM CHLORIDE 0.9% 1,000 ML IV ONE (13:08)
[2025-03-19] MEDS: DICYCLOMINE HCL 10 MG CAP PO ONE (13:46)
[2025-03-19] MEDS: SUCRALFATE 1 GM/10 ML ORAL SUSP PO ONE (13:48)
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
--- NOTE | 2025-03-19 19:57 | DVHPNRES ---
Progress Note Date Seen: Mar 19, 2025 Resident Creating Document: DUNIA LUNA CASA Has the PT tested + for MRSA If YES, has PT been informed?: No Medical Necessity Reason Pt with a Central, PICC or Fol: No Subjective Review of Systems Examined at the bedside. Patient is still complaining of mild abdominal pain. Patient reports: Feels better Changes from previous H/P or p: Changes Objective vital signs Vital Sign Date Time Temp Pulse Resp B/P (MAP) Pulse Ox O2 Delivery O2 Flow Rate FiO2 03/19/25 17:03 98.1 85 17 94/70 (78) 97 98.1 03/19/25 08:00 Room Air* 0 21 Total Intake and Output 03/18/25 03/18/25 03/19/25 14:59 22:59 06:59 Intake Total 250 ml 330 ml Balance 250 ml 330 ml medications Current Medications Medications Dose Ordered Sig/Mitali Route Start Time Stop Time Status Last Admin Dose Admin Acetaminophen 325 mg Q4HP PRN PO 03/17/25 03:30 Ondansetron HCl 4 mg Q4HP PRN IV 03/17/25 03:30 03/17/25 20:57 4 MG Metronidazole 100 ml @ 100 mls/hr Q8HR IV 03/17/25 03:30 03/19/25 15:50 100 MLS/HR Patient Own Medication 200 mg DAILY PO 03/17/25 10:00 Hold Divalproex Sodium 500 mg DAILY PO 03/17/25 10:00 03/19/25 08:54 500 MG Ceftriaxone Sodium 50 ml @ 100 mls/hr DAILY@ IV 03/17/25 06:15 03/19/25 08:53 100 MLS/HR Ceftriaxone Sodium 50 ml @ 100 mls/hr DAILY@09 IV 03/18/25 09:00 Cancel Pantoprazole Sodium 40 mg BID IV 03/17/25 10:00 03/19/25 08:53 40 MG Acetaminophen/ Hydrocodone Bitart 1 tab Q4HPRN PRN PO 03/17/25 09:00 03/18/25 22:42 1 TAB Morphine Sulfate 1 mg Q4HP PRN IV 03/17/25 17:00 Quetiapine Fumarate 400 mg HS PO 03/17/25 22:00 03/18/25 22:41 400 MG Dicyclomine HCl 10 mg TIDP PRN PO 03/18/25 17:45 Sucralfate 1 gm TID@0600,1130,2200 PO 03/19/25 22:00 Mesalamine 800 mg TID PO 03/20/25 06:00 Examination General Appearance: Alert, Oriented X3, Cooperative, No acute distress HEENT: Atraumatic, PERRLA, EOMI, Mucous membrane moist/pink Respiratory: Clear to auscultation, Normal air movement Cardiovascular: Regular rate, Normal S1, Normal S2, No murmurs, no chest wall tenderness Abdominal: Mild abdominal tenderness Extremities: No clubbing, No cyanosis, No edema, Normal pulses, No tenderness/swelling Skin: No rashes, No breakdown, No significant lesion Neuro: Normal gait, Normal speech, Strength at 5/5 X4 ext, Normal tone, Sensation intact, Cranial nerves 3-12 NL, Reflexes 2+ Psych/Mental Status: Mental status NL, Mood NL laboratory and microbiology Laboratory Tests 03/19/25 06:17 Test 03/19/25 06:17 Range/Units Serum Glucose 84 74-106 mg/dL Microbiology Date/Time Source Procedure Growth Status 03/16/25 21:30 Blood Blood Culture - Preliminary NO GROWTH AFTER 48 HOURS OF INCUBATION. Resulted Labs and/or images reviewed: Labs reviewed by me, Image(s) reviewed by me Problem List/Assessment/Plan Problem List/Assessment/Plan Intractable abdominal pain, likely due to peptic ulcer disease/cholelithiasis/ cholangitis Sepsis, likely due to above History of irritable bowel syndrome History of peptic ulcer disease Fatty liver CT abdominopelvic shows, Trace pneumobilia, favored iatrogenic GI consulted, recommended small bowel series, finding shows No acute findings. Recommend a follow-up CT examination of the abdomen and pelvis with contrast for further assessment Protonix Empiric antibiotic, Rocephin and Flagyl Pain management Dicyclomine Mesalamine History of depression, anxiety Continue home meds Prediabetes DIET: Clear liquids DVT PROPHYLAXIS: Lovenox GI PROPHYLAXIS:: Protonix CODE STATUS: Goal of care discussed for more than 18 minutes, full code DISPOSITION: Med/surge Patient's status and plan discussed with the patient. Case discussed with Dr. Haq. Hospital course: Patient was admitted on the line of intractable abdominal pain due to possible peptic ulcer disease/gastroenteritis. Patient was started on empiric antibiotic of Rocephin and Flagyl, IV fluid, Protonix and pain management. Patient underwent EGD on EDG 02/15/2025, 1 cm hiatal hernia, gastritis, polyps. Pathology showing chronic inactive gastritis mild with reactive gastropathy, Status post colonoscopy 03/08/2025, mild terminal ileitis with multiple small aphthous like ulcers seen in the distal 5-10 cm of the terminal ileum from which biopsies were obtained, 2-3 mm benign appearing ascending colon polyp, minimal nonspecific sigmoiditis, Pathology report of colonoscopy, hyperplastic polyp. Mild acute ileitis, colonic mucosa with chronic nonspecific inflammation and lymphoid aggregate. CT scan showed trace pneumobilia but ultrasound was within normal limits. GI consulted, recommended Gastrografin study, results showed normal study. For abdominal pain the patient was given dicyclomine, and later on mesalamine was started. Medication for anxiety/depression were continued during hospital course. Outpatient plan: Mesalamine Dicyclomine Protonix Carafate Follow up with the PCP within 1 week of the discharge Follow up with the GI, the patient has an appointment on 05/09/2025 GI Diagnoses: Intractable abdominal pain, likely due to peptic ulcer disease/cholelithiasis/cholangitis Sepsis, likely due to above History of irritable bowel syndrome History of peptic ulcer disease Fatty liver History of depression, anxiety Prediabete History of Bipolar disorder current episode depressed Pneumobilia, possibly iatrogenic Possible Crohn disease Ruled out pancreatitis Plan discussed with: Patient, Other (RN) My Orders My Orders Orders - DUNIA LUNA Procedure Category Date Status Time Sucralfate Susp PHA 03/19/25 In Process (Carafate Susp) 22:[address] Capsule PHA 03/19/25 In Process (Delzicol Delayed 20:[address] Capsule PHA 03/20/25 In Process (Delzicol Delayed 06:00 DUNIA LUNA RESDIENT Mar 19, 2025 19:57
[2025-03-19] MEDS: MESALAMINE 400mg Delayed Release Cap PO ONE (20:07)
[2025-03-19] MEDS: SUCRALFATE 1 GM/10 ML ORAL SUSP PO SCH (21:42)
[2025-03-20 01:00] VITALS: BP 121/75; PULSE 103; RESP 16; TEMP 98; O2SAT 96
[2025-03-20 05:00] VITALS: BP 100/62; PULSE 88; RESP 18; TEMP 98.1; O2SAT 98
[2025-03-20] MEDS: MESALAMINE 400mg Delayed Release Cap PO SCH (05:15)
[2025-03-20 06:12] LABS: Basophils # (auto) 0 10 ^3/uL (0-0.2); Basophils % (auto) 0.2 % (0.0-2.0); Eosinophils # (auto) 0.1 10 ^3/uL (0-0.8); Eosinophils % (auto) 1.8 % (0.0-7.0); Hematocrit 37.2 % (36.0-46.0); Hemoglobin 12.3 g/dL (12.2-16.2); Lymphocytes # (auto) 2.6 10 ^3/uL (0.4-5.4); Lymphocytes % (auto) 36.4 % (10.0-50.0); Mean Corpuscular Hemoglobin 27.5 pg (28.0-32.0); Mean Corpuscular Volume 83.3 fL (80.0-100.0); Monocytes # (auto) 0.6 10 ^3/uL (0-1.3); Monocytes % (auto) 8.3 % (0.0-12.0); Neutrophils # (auto) 3.8 10 ^3/uL (1.6-8.6); Neutrophils % (auto) 53.3 % (37.0-80.0); Platelet Count (auto) 265 10^3/uL (140-450); Red Blood Cells 4.46 10^6/uL (4.0-5.20); Red Cell Distribution Width 14.4 % (11.8-14.3); White Blood Cell 7.1 10^3/uL (4.4-10.8)
[2025-03-20 06:35] LABS: Alkaline Phosphatase 63 U/L (46-116); Anion Gap 9 (5-15); BUN/Creatinine Ratio 13.5 (10.0-20.0); Blood Urea Nitrogen 10 mg/dL (9-23); Calcium 9.3 mg/dL (8.7-10.4); Carbon Dioxide 25 mmol/L (20-31); Chloride 106 mmol/L (98-107); Glucose 95 mg/dL (74-106); Potassium 3.8 mmol/L (3.5-5.1); Sodium 140 mmol/L (136-145); Total Protein 5.9 g/dL (5.7-8.2)
[2025-03-20 06:36] LABS: Albumin 3.8 g/dL (3.2-4.8)
[2025-03-20 06:44] LABS: Alanine Aminotransferase 9 U/L (7-40); Aspartate Aminotransferase < 8 U/L (13-40); Bilirubin, Total 0.3 mg/dL (0.2-1.0)
[2025-03-20 09:00] VITALS: BP 100/67; PULSE 68; RESP 17; TEMP 97.8; O2SAT 96
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
[2025-03-20 13:00] VITALS: BP 82/53; PULSE 76; RESP 18; TEMP 98.1; O2SAT 96
[2025-03-20] MEDS ORDERED: MESA1.2T PO (15:13)
[2025-03-20] MEDS ORDERED: PANT40T PO (15:13)
[2025-03-20] MEDS ORDERED: SUCR1SUS26 PO (15:13)
[2025-03-20] MEDS ORDERED: DICY10CA PO (15:13)
--- NOTE | 2025-03-20 15:23 | DVHDS2 ---
Discharge Summary Date of Admission Mar 17, 2025 at 03:16 Date of Discharge: Mar 20, 2025 Labs/Diagnostic Data: Laboratory Results Test 03/20/25 05:14 03/18/25 22:50 03/17/25 14:36 03/17/25 04:52 White Blood Count 7.1 10^3/uL (4.4-10.8) Red Blood Count 4.46 10^6/uL (4.0-5.20) Hemoglobin 12.3 g/dL (12.2-16.2) Hematocrit 37.2 % (36.0-46.0) Mean Corpuscular Volume 83.3 fL (80.0-100.0) Mean Corpuscular Hemoglobin 27.5 pg (28.0-32.0) Mean Corpuscular Hemoglobin Concent 33.0 g/dL (32.0-36.0) Red Cell Distribution Width 14.4 % (11.8-14.3) Platelet Count 265 10^3/uL (140-450) Mean Platelet Volume 8.2 fL (6.9-10.8) Neutrophils (%) (Auto) 53.3 % (37.0-80.0) Lymphocytes (%) (Auto) 36.4 % (10.0-50.0) Monocytes (%) (Auto) 8.3 % (0.0-12.0) Eosinophils (%) (Auto) 1.8 % (0.0-7.0) Basophils (%) (Auto) 0.2 % (0.0-2.0) Neutrophils # (Auto) 3.8 10 ^3/uL (1.6-8.6) Lymphocytes # (Auto) 2.6 10 ^3/uL (0.4-5.4) Monocytes # (Auto) 0.6 10 ^3/uL (0-1.3) Eosinophils # (Auto) 0.1 10 ^3/uL (0-0.8) Basophils # (Auto) 0 10 ^3/uL (0-0.2) Nucleated Red Blood Cells 0.0 % Sodium Level 140 mmol/L (136-145) Potassium Level 3.8 mmol/L (3.5-5.1) Chloride Level 106 mmol/L (98-107) Carbon Dioxide Level 25 mmol/L (20-31) Anion Gap 9 (5-15) Blood Urea Nitrogen 10 mg/dL (9-23) Creatinine 0.74 mg/dL (0.550-1.02) Glomerular Filtration Rate Calc 104 mL/min (>90) BUN/Creatinine Ratio 13.5 (10.0-20.0) Serum Glucose 95 mg/dL (74-106) Calcium Level 9.3 mg/dL (8.7-10.4) Total Bilirubin 0.3 mg/dL (0.2-1.0) Aspartate Amino Transferase (AST) < 8 U/L (13-40) Alanine Aminotransferase (ALT) 9 U/L (7-40) Alkaline Phosphatase 63 U/L (46-116) Total Protein 5.9 g/dL (5.7-8.2) Albumin 3.8 g/dL (3.2-4.8) POC Glucose 140 mg/dl (70-106) Atypical p-ANCA <1:20 titer (Neg:<1:20) Hemoglobin A1c 5.9 % A1C (<5.7) Triglycerides Level 128 mg/dL (< 150) Cholesterol Level 179 mg/dL (< 200) LDL Cholesterol 107 mg/dL (< 100) HDL Cholesterol 54 mg/dL (40-59) Vitamin B12 Level 712 pg/mL (211-911) Vitamin D 25-Hydroxy 26.7 ng/mL (30.0-100) Folic Acid 17.91 ng/mL (>5.38) Thyroid Stimulating Hormone (TSH) 4.18 uIU/mL (0.55-4.78) Test 03/17/25 04:42 03/16/25 22:22 03/16/25 21:30 03/16/25 20:40 Influenza Type A Antigen Negative (Negative) Influenza Type B Antigen Negative (Negative) SARS-CoV-2 Antigen (Rapid) Negative (NEGATIVE) Troponin I High Sensitivity < 3 ng/L (</=34) Lactic Acid Level 1.8 mmol/L (0.4-2.0) B-Type Natriuretic Peptide 1.65 pg/mL (0-100) Lipase 58 U/L (12-53) Beta HCG, Quantitative 0.9 mIU/mL (1.5-4.2) Urine Color Yellow (Yellow) Urine Clarity Clear (Clear) Urine pH 6.0 (5.0-9.0) Urine Specific [place] 1.021 (1.001-1.035) Urine Protein Negative (Negative) Urine Ketones Trace (Negative) Urine Blood Negative /uL (Negative) Urine Nitrite Negative (Negative) Urine Bilirubin Negative (Negative) Urine Urobilinogen Normal mg/dL (Negative) Urine Leukocyte Esterase Negative /uL (Negative) Urine RBC <1 /hpf (0 - 4) Urine Microscopic WBC 3 /HPF (0-5) Urine Squamous Epithelial Cells Few /hpf (<5) Urine Amorphous Crystals Few /hpf (None Seen) Urine Bacteria None seen /hpf (None Seen) Urine Glucose Normal mg/dL (Normal) Urine Opiates Screen Neg (NEGATIVE) Urine Fentanyl Screen Neg (NEGATIVE) Urine Barbiturates Screen Neg (NEGATIVE) Urine Phencyclidine Screen Neg (NEGATIVE) Urine Amphetamines Screen Neg (NEGATIVE) Urine Benzodiazepines Screen Neg (NEGATIVE) Urine Cocaine Screen Neg (NEGATIVE) Urine Cannabinoids Screen Neg (NEGATIVE) Other Laboratory Tests 03/20/25 05:14 Brief Hx & Hospital Course: Hospital course: Patient was admitted on the line of intractable abdominal pain due to possible peptic ulcer disease/gastroenteritis. Patient was started on empiric antibiotic of Rocephin and Flagyl, IV fluid, Protonix and pain management. Patient underwent EGD on EDG 02/15/2025, 1 cm hiatal hernia, gastritis, polyps. Pathology showing chronic inactive gastritis mild with reactive gastropathy, Status post colonoscopy 03/08/2025, mild terminal ileitis with multiple small aphthous like ulcers seen in the distal 5-10 cm of the terminal ileum from which biopsies were obtained, 2-3 mm benign appearing ascending colon polyp, minimal nonspecific sigmoiditis, Pathology report of colonoscopy, hyperplastic polyp. Mild acute ileitis, colonic mucosa with chronic nonspecific inflammation and lymphoid aggregate. CT scan showed trace pneumobilia but ultrasound was within normal limits. GI consulted, recommended Gastrografin study, results showed normal study. For abdominal pain the patient was given dicyclomine, and later on mesalamine was started. Medication for anxiety/depression were continued during hospital course. Diagnosis: Intractable abdominal pain, likely due to peptic ulcer disease and/or possible IBD IBD possible SIRS without end organ damage, likely due to above History of irritable bowel syndrome History of peptic ulcer disease Fatty liver History of depression, anxiety Prediabetes History of Bipolar disorder current episode depressed Pneumobilia, possibly iatrogenic Possible Crohn disease Ruled out pancreatitis Discharge plan: -Mesalamine 2 tablets daily for next 30 days, follow up with GI for change in dose to maintenance dose -Dicyclomine to take as needed for abdominal pain -Protonix 40 mg daily -Carafate 1 g twice daily -Follow up with the PCP within 1 week of the discharge -Follow up with the GI, the appointment on 05/09/2025 Condition at Discharge: Fair Final Diagnosis/Problems List Intractable abdominal pain, likely due to peptic ulcer disease and/or possible IBD IBD possible SIRS without end organ damage, likely due to above History of irritable bowel syndrome History of peptic ulcer disease Fatty liver History of depression, anxiety Prediabetes History of Bipolar disorder current episode depressed Pneumobilia, possibly iatrogenic Possible Crohn disease Ruled out pancreatitis Discharge Disposition: Home Discharge Instruct/Medications Diet: Regular Activity: No Restrictions, As Tolerated Follow Up/Referral: See discharge instructions below Medications: See discharge instructions below Discharge Statement: "Patient was advised to return to the ER or call 911 if any headaches, dizziness, shortness of breath, chest pain, abdominal pain, bleeding, fevers, or worsening of medical condition. Patient was counseled about treatment plan, medications, possible side effects, patientverbalized understanding. All questions were answered to the best of my ability. This discharge took greater then 30 minutes in planning, reviewing documentation, counseling the patient, and discussing with other team members." ASSESSMENT ASSESSMENT Assessment Date of Service: Mar 20, 2025 Billing Provider: ROSMERY JOHNS MD Common Visit Codes: 64862-TJP/OBS DISCH DAY >30min ROSMERY JOHNS MD Mar 20, 2025 15:23
[2025-03-20 16:35] VITALS: TEMP 36.7
[2025-03-20 17:00] VITALS: BP 98/59; PULSE 92; RESP 19; TEMP 98; O2SAT 98
[2025-03-22 13:07] LABS: Saccharomyces cerevisiae IgA <20.0 Units (0.0-24.9)
== END 2025-03-20 18:21 | disposition home or self-care (01) | DRG 241 ==
LOC: ER 20:33 → OVERFLOW 03-17 03:16 → WEST WING 03-17 13:23
PROVIDERS: ADMIT Student in an Organized Health Care Education/Training Program; ATTEND Student in an Organized Health Care Education/Training Program
DX: K27.9 Peptic ulcer, site unspecified, unspecified as acute or chronic, without hemorrhage or perforation (principal); R65.10 Systemic inflammatory response syndrome (SIRS) of non-infectious origin without acute organ dysfunction; K76.0 Fatty (change of) liver, not elsewhere classified; K50.00 Crohn's disease of small intestine without complications; F31.9 Bipolar disorder, unspecified; Z20.822 Contact with and (suspected) exposure to COVID-19; R73.03 Prediabetes; F41.9 Anxiety disorder, unspecified; Z86.0100 Personal history of colon polyps, unspecified; Z79.899 Other long term (current) drug therapy; Z98.51 Tubal ligation status; Z83.3 Family history of diabetes mellitus; Z98.891 History of uterine scar from previous surgery
CPT/HCPCS: 36415; 74176; 74250; 76705; 80048; 80053; 80061; 80307; 81001; 82306; 82607; 82746; 82962; 83036; 83605; 83690; 83880; 84443; 84484; 84702; 85025; 86256; 86671; 87040; 87426; 87804; 93005; 96361; 96374; 96375; G0378; J2405; J2470; J3490